=== PATIENT | male | born 1985 | race Caucasian/White ===

== ENCOUNTER 2019-01-15 16:51 | Inpatient (IN) | payer BC, OTHER ==
[2019-01-15] MEDS ORDERED: Lorazepam 2 MG/ML VIAL ONE ×6 (17:41→23:49)
[2019-01-15 17:57] LABS: #Lymphocytes 0.3 thou/uL (1.20-3.40); #Monocytes 0.1 thou/uL (0.11-0.59); %Eosinophils 0.4 % (0.0-10.0); %Lymphocytes 11.5 % (21.0-51.0); %Monocytes 3.9 % (0.0-10.0); %Neutrophils 84.2 % (42.0-75.0); Hemoglobin 11.8 g/dL (14.0-18.0); Mean Corpuscular HGB CONC 34.9 g/dL (32.0-36.0); Mean Corpuscular Hemoglobin 36.1 pg (27.0-31.0); Mean Platelet Volume 9.2 fL (7.4-10.4); Platelet Count 40 thou/uL (130-400); RBC Distribution Width 11.7 % (11.5-14.5); Red Blood Cell (RBC) Count 3.27 mill/uL (4.70-6.10); White Blood Cell (WBC) Count 2.4 thou/uL (4.8-10.8)
[2019-01-15 18:10] LABS: MDiff Complete? YES; Macrocytosis SLIGHT = 6-15 cells (100X) (0-5/hpf); Platelet Morphology Comment Appears Decreased; Polychromasia SLIGHT = 2-3 cells (100X) (0-2/hpf)
[2019-01-15] MEDS ORDERED: Multivitamins, Adult 10 ML, Thiamine HCl 100 MG, Folic Acid 1 MG in Dextrose 5 %-0.45 %... IV SCH (18:15)
[2019-01-15 18:16] LABS: ALT (SGPT) 185 U/L (8-55); AST (SGOT) 446 U/L (5-34); Albumin 4.6 g/dL (3.5-5.0); Alkaline Phosphatase 80 U/L (40-150); Anion Gap 21 mmol/L (10-20); BUN (Urea Nitrogen) 11 mg/dL (8.9-20.6); Calc. Creatinine Clearance 121 mL/min (70-130); Calcium 9.9 mg/dL (7.8-10.44); Carbon Dioxide 23 mmol/L (22-29); Chloride 94 mmol/L (98-107); Estimated GFR-MDRD Greater than 90; Globulin 3.1 g/dL (2.4-3.5); Glucose 152 mg/dL (70-105); Potassium 3.5 mmol/L (3.5-5.1); Protein, Total 7.7 g/dL (6.0-8.3); Sodium 134 mmol/L (136-145)
[2019-01-15 18:44] LABS: Bilirubin Negative (Negative); Blood, Urine 2+ (Negative); Clarity Clear (Clear); Glucose, Urine (Dipstick) Normal (Negative); Leukocyte Negative Leu/uL (Negative); Mucous/LPF 2+ LPF (<2+); Nitrite Negative (Negative); Protein, Urine (Dipstick) Greater than 600 mg/dL (Neg-Trace); Squamous Epithelial 0-3 HPF (0-3); Urobilinogen 3 mg/dL (Less than 2); WBC/HPF 0-3 HPF (0-3)
[2019-01-15 18:51] LABS: Bacteria/HPF None Seen HPF (None Seen); RBC/HPF 0-3 HPF (0-3)
[2019-01-15] MEDS ORDERED: Lorazepam 100 ML IVPB SCH ×2 (21:30→21:45)
[2019-01-15] MEDS ORDERED: Lorazepam 2 MG/ML VIAL SLOW IVP PRN ×2 (21:32→21:33)
[2019-01-15] MEDS ORDERED: Ondansetron PF 4 MG/2 ML Vial IVP PRN (21:35)
[2019-01-15] MEDS ORDERED: Acetaminophen 325 MG TAB PO PRN (21:35)
[2019-01-15] MEDS ORDERED: Acetaminophen 650 MG Suppository PR PRN (21:35)
[2019-01-15] MEDS ORDERED: Ondansetron ODT 4 MG TAB PO PRN (21:35)
[2019-01-15 23:04] LABS: INR-International Normal Ratio 1.1; Prothrombin Time 13.7 SEC (12.0-14.7)
--- NOTE | 2019-01-15 23:19 | HP ---
PRIMARY CARE DOCTOR: The patient has no PCP. CODE STATUS: Full code. TIME OF EVALUATION: 09:30 p.m. CHIEF COMPLAINT: Confusion. HISTORY OF PRESENT ILLNESS: This is a 33-year-old male patient, past medical history of alcohol abuse. The patient was coming from [facility], escorted. The patient was sitting in the day room and started jerking, likely triggered by alcohol withdrawal. Reportedly, the patient had an episode of seizure and has history of seizures in the past that have been always related to alcohol withdrawal. The patient has been getting Ativan. The patient is in full-blown DTs. We will continue to give Ativan p.r.n. IV. We will place him in ICU. The patient continued to deteriorate, might need intubation and sedation. Hopefully, we do not have to get that far. REVIEW OF SYSTEMS: Unable to obtain, patient is confused. PAST MEDICAL HISTORY: Seizures related to alcohol withdrawal. PAST SURGICAL HISTORY: No surgical history. PSYCHIATRIC HISTORY: No previous psych history. FAMILY HISTORY:Reviewed and non contributory for current presentation SOCIAL HISTORY: The patient is a heavy drinker on a daily basis. No drug use. No smoking history. KNOWN ALLERGIES: No known drug allergies. REPORTED MEDICATIONS: Clonidine and Librium. PHYSICAL EXAMINATION: VITAL SIGNS: On presentation, blood pressure 168/108 with heart rate 117, respiratory rate was 20. Pain was 0/10. Oxygen saturation was 95% on room air. GENERAL APPEARANCE: The patient is confused, hallucinating. HEENT: Eyes, normal conjunctiva. Moist oral mucosa. Anicteric. No JVD. RESPIRATORY: Bilateral air entry. No rales. No wheezing. Bilateral symmetric expansion. CARDIOVASCULAR: The patient is tachycardic, mildly hypertensive likely associated with agitation from DTs. When quiet, heart rate comes down to the 100s and the 90s. ABDOMEN: Soft. Normal bowel sounds. MUSCULOSKELETAL: Baseline range of motion and strength. SKIN: Warm and intact. No pallor. No rash. No redness. Capillary refill seems to intact. NEUROLOGIC: No evidence of any new focal weakness. Cranial nerves seem to be intact. PSYCHIATRIC: The patient is confused, unable to fully explore. LABORATORY DATA: Reviewed. Patient has white count 2.4, hemoglobin 11.8, MCV 104, platelet count 40. Chemistry; sodium 134, potassium 3.5, chloride 94, carbon dioxide 23, anion gap 21, BUN 11, creatinine 0.81, GFR greater than 90, glucose 152, calcium 9.9, magnesium 1.3, total bilirubin 2.0, AST 446, ALT 185. ASSESSMENT AND PLAN: The patient will be placed in the hospital with following medical problems; 1. Delirium tremens. The patient's last drink was probably 24 to 48 hours ago since he has been in [facility] for 24 hours. The patient is receiving Ativan. We will keep IV for now. We will monitor in ICU. The patient continue to deteriorate, might need sedation and intubation. We will monitor closely. 2. Chronic alcohol abuse. We will replace electrolytes as needed. Start ASE protocol with multivitamin replacement. Will need to be advised to stop drinking. The patient is alert and oriented. 3. Hypomagnesemia, magnesium 1.3, magnesium being replaced. 4. Possible alcoholic hepatitis given high bilirubin, higher AST compared to ALT. This could be also be due to cirrhosis. We will treat the underlying condition. 5. Pancytopenia, unclear etiology, could be due to chronic liver disease. We will monitor levels. There is no bleeding. We will check coagulation. 6. Deep venous thrombosis prophylaxis. 7. Hyponatremia, sodium 134, this is mild, no need for any acute intervention. We will monitor and treat accordingly. TIME SPENT: Critical care time more than 35 minutes spent in patient stabilization, review of records with bedside assessment and plan, discussion with ER physician. Job ID: [id number] MTDD
[2019-01-16] MEDS: Magnesium 2 GM/50 ML 2 GM in Premix Bag 1 BAG IVPB SCH ×2 (00:50→02:03)
[2019-01-16] MEDS: Sodium Chloride 0.9% 1,000 ML IV SCH ×3 (00:50→19:30)
[2019-01-16] MEDS: Lorazepam 2 MG/ML VIAL SLOW IVP SCH ×6 (00:50→20:58)
[2019-01-16 05:50] LABS: #Lymphocytes 0.9 thou/uL (1.20-3.40); #Monocytes 0.2 thou/uL (0.11-0.59); #Neutrophils 1.8 thou/uL (1.40-6.50); %Basophils 0.2 % (0.0-1.0); %Eosinophils 0.4 % (0.0-10.0); %Lymphocytes 31.1 % (21.0-51.0); %Monocytes 5.7 % (0.0-10.0); %Neutrophils 62.6 % (42.0-75.0); Hemoglobin 12.2 g/dL (14.0-18.0); Mean Corpuscular HGB CONC 34.8 g/dL (32.0-36.0); Mean Corpuscular Hemoglobin 36.5 pg (27.0-31.0); Mean Platelet Volume 10.2 fL (7.4-10.4); Platelet Count 40 thou/uL (130-400); RBC Distribution Width 11.6 % (11.5-14.5); Red Blood Cell (RBC) Count 3.34 mill/uL (4.70-6.10); White Blood Cell (WBC) Count 2.8 thou/uL (4.8-10.8)
[2019-01-16 06:13] LABS: Anion Gap 16 mmol/L (10-20); BUN (Urea Nitrogen) 6 mg/dL (8.9-20.6); Calc. Creatinine Clearance 144 mL/min (70-130); Calcium 9.3 mg/dL (7.8-10.44); Carbon Dioxide 24 mmol/L (22-29); Chloride 97 mmol/L (98-107); Estimated GFR-MDRD Greater than 90; Glucose 71 mg/dL (70-105); Potassium 3.3 mmol/L (3.5-5.1); Sodium 134 mmol/L (136-145)
[2019-01-16] MEDS: Enoxaparin Sodium 40 MG/0.4 ML SYRINGE SC SCH (08:26)
[2019-01-16] MEDS ORDERED: CCU Electrolyte Replacement 1 EACH FS ONE (10:13)
[2019-01-16] MEDS ORDERED: Magnesium Oxide 400 MG TAB PO PRN (10:17)
[2019-01-16] MEDS ORDERED: Potassium Chloride 40 MEQ in Premix Bag 1 BAG IVPB PRN (10:17)
[2019-01-16] MEDS ORDERED: PHOS-NAK 1 PKT PACK PO PRN ×2 (10:17)
[2019-01-16] MEDS ORDERED: Potassium Chloride 40 MEQ in Sodium Chloride 0.9% 250 ML 250 ML IVPB PRN (10:17)
[2019-01-16] MEDS ORDERED: Magnesium 2 GM/50 ML 2 GM in Premix Bag 1 BAG IVPB PRN (10:17)
[2019-01-16] MEDS ORDERED: Potassium Phosphate 15 MMOL in Sodium Chloride 0.9% 250 ML 250 ML IV PRN (10:17)
[2019-01-16] MEDS ORDERED: Potassium Phosphate 12 MMOL in Sodium Chloride 0.9% 250 ML 250 ML IV PRN (10:17)
[2019-01-16] MEDS ORDERED: Potassium Phosphate 9 MMOL in Sodium Chloride 0.9% 100 ML IVPB PRN (10:17)
[2019-01-16] MEDS ORDERED: CCU ELECTROLYTE REPLACEMENT PROTOCOL FS PRN (10:17)
--- NOTE | 2019-01-16 10:34 | PDOC.HOSPP ---
- Subjective Encounter Date: 01/16/19 Encounter Time: 10:33 Subjective: Mr. Aguero was seen today in follow-up of Alcohol withdrawal. He is agitated and squirming around in bed. He knows where he is, what year and month however. - Objective Vital Signs & Weight: Vital Signs (12 hours) Temp BP Pulse Ox 01/16/19 07:18 141/94 H 01/16/19 07:00 99.5 F 01/16/19 04:00 98.6 F 165/112 H 01/16/19 01:00 98 01/16/19 00:25 98.0 F 156/99 H Weight Weight 145 lb 1.027 oz Most Recent Monitor Data Heart Rate from ECG 93 NIBP 168/97 NIBP BP-Mean 120 Respiration from ECG 12 SpO2 100 I&O: 01/15/19 01/16/19 01/17/19 06:59 06:59 06:59 Intake Total 570 0 Output Total 1000 500 Balance -430 -500 Result Diagrams: 01/16/19 05:24 01/16/19 05:24 Hospitalist ROS - Medication Medications: Active Medications Generic Name Dose Route Start Last Admin Trade Name Sumitq PRN Reason Stop Dose Admin Enoxaparin Sodium 40 mg 01/16/19 09:00 01/16/19 08:26 Lovenox SC 40 mg 0900 KIANNA Administration Sodium Chloride 1,000 mls @ 125 mls/hr 01/15/19 22:15 01/16/19 00:50 Normal Saline 0.9% IV 1,000 mls .Q8H KIANNA Administration Lorazepam 2 mg 01/16/19 01:00 01/16/19 08:26 Ativan SLOW IVP 2 mg Q4HR KIANNA Administration Sodium Chloride 10 ml 01/16/19 09:00 01/16/19 09:05 Flush - Normal Saline IVF Not Given Q12HR KIANNA - Exam Eye: PERRL, anicteric sclera Heart: RRR (rate is regular but tachycardic), no murmur, no gallops, no rubs, normal peripheral pulses Respiratory: CTAB, no wheezes, no rales, rhonchi (+ occasional rhonchi) Gastrointestinal: soft, non-tender, non-distended, normal bowel sounds, no palpable masses, no hepatomegaly, no splenomegaly Extremities: no cyanosis, no clubbing, no edema Neurological: CN's grossly intact, no weakness Psychiatric: A&O x 3 Hosp A/P (1) Alcohol withdrawal delirium, acute, hyperactive Code(s): F10.231 - ALCOHOL DEPENDENCE WITH WITHDRAWAL DELIRIUM Status: Acute (2) Alcohol abuse Code(s): F10.10 - ALCOHOL ABUSE, UNCOMPLICATED Status: Acute (3) Alcohol withdrawal seizure Code(s): F10.239 - ALCOHOL DEPENDENCE WITH WITHDRAWAL, UNSPECIFIED; R56.9 - UNSPECIFIED CONVULSIONS Status: Acute - Plan * Alcohol Withdrawal with delerium tremens, and withdrawal seizure- continue ASE protocol, and he has been started on a Precedex drip * Will continue Thiamine and folic acid supplementation * Ativan as needed * Continue DVT and GI Prophylaxis
[2019-01-16] MEDS: Potassium Chloride 20 MEQ TAB PO PRN (11:43)
--- NOTE | 2019-01-16 13:01 | CON ---
DATE OF CONSULTATION: 01/16/2019 REASON FOR CONSULTATION: Alcohol withdrawal. HISTORY OF PRESENT ILLNESS: The patient is a 33-year-old male, who was brought in from the care home after having a seizure. He is in alcohol withdrawal. Apparently drinks a large amount of vodka daily. According to the oyster sorter, he was just admitted to the care home. PAST MEDICAL HISTORY: 1. Seizures. 2. Alcohol abuse. PAST SURGICAL HISTORY: None. PSYCHIATRIC HISTORY: None. SOCIAL HISTORY: Heavy drinker. Does not smoke. Does not use illicit drugs. ALLERGIES: NONE. MEDICATIONS: Prior to admission, 1. Clonidine. 2. Librium. REVIEW OF SYSTEMS: He is having hallucinations, confusion. PHYSICAL EXAMINATION: VITAL SIGNS: Temperature 99.5, pulse 93, blood pressure 168/97, and O2 saturation 100%. GENERAL: He is confused. He is in 4-point restraints. He is flailing to the bed. HEENT: Pupils are reactive. Sclerae are icteric. Oropharynx is clear. NECK: No adenopathy or JVD. LUNGS: Clear anteriorly. CARDIAC: S1 and S2. Tachycardic. ABDOMEN: Soft, nontender. EXTREMITIES: No clubbing, cyanosis, or edema. NEUROLOGIC: Moves all 4 extremities. LABORATORY DATA: Sodium 134, potassium 3.3, chloride 97, CO2 of 24, BUN 6, creatinine 0.6, glucose 71, AST 446, ALT 185, prolactin 17.1. INR 1.1. White blood cell count 2.8, hematocrit 35.1, and platelet count 40. ASSESSMENT: 1. Alcohol withdrawal/delirium tremens. 2. Thrombocytopenia, likely secondary to alcohol use. 3. Hyponatremia, which is likely secondary to alcohol use. 4. Leukopenia also likely secondary to alcohol use. PLAN: The patient will be kept in the ICU on DT precautions. We will give benzodiazepines as needed. Additionally, I will add a Precedex drip to help control symptoms. We will monitor his electrolytes closely. I have written for some IV thiamine. He is on enoxaparin for DVT prophylaxis and will be placed on Pepcid for GI prophylaxis. Job ID: [id number]
[2019-01-16 15:38] LABS: Potassium 3.6 mmol/L (3.5-5.1)
[2019-01-16] MEDS: Famotidine/PF 20 mg/2ml Vial SLOW IVP SCH (20:58)
[2019-01-17] MEDS: Lorazepam 2 MG/ML VIAL SLOW IVP SCH ×6 (01:11→20:59)
[2019-01-17] MEDS: Sodium Chloride 0.9% 1,000 ML IV SCH ×3 (02:42→20:59)
[2019-01-17 07:07] LABS: Anion Gap 17 mmol/L (10-20); BUN (Urea Nitrogen) 5 mg/dL (8.9-20.6); Calc. Creatinine Clearance 130 mL/min (70-130); Calcium 8.3 mg/dL (7.8-10.44); Carbon Dioxide 17 mmol/L (22-29); Chloride 107 mmol/L (98-107); Estimated GFR-MDRD Greater than 90; Glucose 73 mg/dL (70-105); Magnesium 1.8 mg/dL (1.6-2.6); Phosphorus 2.8 mg/dL (2.3-4.7); Potassium 3.9 mmol/L (3.5-5.1); Sodium 137 mmol/L (136-145)
[2019-01-17] MEDS: Enoxaparin Sodium 40 MG/0.4 ML SYRINGE SC SCH (08:00)
[2019-01-17] MEDS: Famotidine/PF 20 mg/2ml Vial SLOW IVP SCH (08:00)
--- NOTE | 2019-01-17 08:45 | PRG ---
DATE OF SERVICE: 01/17/2019 SUBJECTIVE: His alcohol withdrawal symptoms are much better today. He is off the Precedex. OBJECTIVE: VITAL SIGNS: Temperature 98, pulse 92, blood pressure 160/90, O2 saturation 99%. HEENT: Unremarkable. NECK: No adenopathy or JVD. CHEST: Clear. CARDIAC: S1 and S2. Regular. ABDOMEN: Soft. EXTREMITIES: No tremor. LABORATORY DATA: Sodium 137, potassium 3.9, magnesium 1.8. ASSESSMENT: Alcohol withdrawal. PLAN: He can be transferred from the ICU to the floor. Hopefully, he can go back to the shelter by tomorrow. No further Pulmonary recommendations at this time. Job ID: [id number]
--- NOTE | 2019-01-17 10:30 | PDOC.HOSPP ---
- Subjective Encounter Date: 01/17/19 Encounter Time: 10:28 Subjective: Mr. Aguero was seen today in follow-up of alcohol withdrawal. He does not have any complaints this morning other than his feet are sore. - Objective Vital Signs & Weight: Vital Signs (12 hours) Temp BP Pulse Ox 01/17/19 07:20 99 01/17/19 07:00 98 F 01/17/19 00:00 98.5 F 111/79 Weight Weight 145 lb 1.027 oz Most Recent Monitor Data Heart Rate from ECG 74 NIBP 127/90 NIBP BP-Mean 102 Respiration from ECG 18 SpO2 99 I&O: 01/16/19 01/17/19 01/18/19 06:59 06:59 06:59 Intake Total 570 3866.1 480 Output Total 1000 2700 350 Balance -430 1166.1 130 Result Diagrams: 01/16/19 05:24 01/17/19 06:26 Hospitalist ROS - Medication Medications: Active Medications Generic Name Dose Route Start Last Admin Trade Name Freq PRN Reason Stop Dose Admin Enoxaparin Sodium 40 mg 01/16/19 09:00 01/17/19 08:00 Lovenox SC 40 mg 0900 KIANNA Administration Famotidine 20 mg 01/16/19 21:00 01/17/19 08:00 Pepcid SLOW IVP 20 mg BID KIANNA Administration Sodium Chloride 1,000 mls @ 125 mls/hr 01/15/19 22:15 01/17/19 09:29 Normal Saline 0.9% IV 1,000 mls .Q8H KIANNA Administration Thiamine HCl 100 mg/ Sodium 51 mls @ 100 mls/hr 01/16/19 21:00 01/17/19 08:01 Chloride IVPB 01/20/19 09:31 51 mls Q12HR KIANNA Administration Lorazepam 2 mg 01/16/19 01:00 01/17/19 09:26 Ativan SLOW IVP 2 mg Q4HR KIANNA Administration Magnesium Oxide 800 mg 01/16/19 10:17 01/16/19 11:46 Magnesium Oxide PO 800 mg PRN PRN Administration FOR SERUM MAG < 1.4 Potassium Chloride 40 meq 01/16/19 10:17 01/16/19 11:43 K-Dur PO 40 meq ASDIR PRN Administration FOR SERUM K+ 2.5 - 3.5 Sodium Chloride 10 ml 01/16/19 09:00 01/17/19 08:01 Flush - Normal Saline IVF 10 ml Q12HR KIANNA Administration - Exam Eye: PERRL, anicteric sclera Heart: RRR, no murmur, no gallops, no rubs, normal peripheral pulses Respiratory: CTAB, no wheezes, no rales, no ronchi, normal chest expansion, no tachypnea, normal percussion Gastrointestinal: soft, non-tender, non-distended, normal bowel sounds, no palpable masses, no hepatomegaly, no splenomegaly Extremities: no cyanosis, no clubbing, no edema Skin: normal turgor, no rashes Neurological: CN's grossly intact, normal sensation to touch, no weakness, no focal deficits, no new deficit Psychiatric: A&O x 3 Hosp A/P (1) Alcohol withdrawal delirium, acute, hyperactive Code(s): F10.231 - ALCOHOL DEPENDENCE WITH WITHDRAWAL DELIRIUM Status: Acute (2) Alcohol abuse Code(s): F10.10 - ALCOHOL ABUSE, UNCOMPLICATED Status: Acute (3) Alcohol withdrawal seizure Code(s): F10.239 - ALCOHOL DEPENDENCE WITH WITHDRAWAL, UNSPECIFIED; R56.9 - UNSPECIFIED CONVULSIONS Status: Acute - Plan * Alcohol Withdrawal - improving. He is much more calm today, and his vital signs are stable. Precedex drip has been discontinued * Will continue to monitor in the hospital, and continue ASE protocol, and Ativan as needed * Will continue Thiamine and folic acid supplementation * Hypokalemia and Hypomagnesemia- improved * He can be moved out of the ICU * Continue DVT and GI Prophylaxis
[2019-01-17] MEDS: Diazepam 5 MG TAB PO PRN (23:15)
[2019-01-18] MEDS: Lorazepam 2 MG/ML VIAL SLOW IVP SCH ×6 (00:23→20:00)
[2019-01-18] MEDS ORDERED: Lorazepam 2 MG/ML VIAL SLOW IVP SCH (01:30)
[2019-01-18] MEDS: Lorazepam 2 MG/ML VIAL SLOW IVP PRN ×4 (01:53→15:53)
[2019-01-18] MEDS: Sodium Chloride 0.9% 1,000 ML IV SCH (03:27)
[2019-01-18] MEDS: Dextrose 5 % And 0.9 % NaCl 1,000 ML IV SCH ×2 (05:54→19:12)
[2019-01-18 06:53] LABS: Anion Gap 16 mmol/L (10-20); BUN (Urea Nitrogen) Less than 4 mg/dL (8.9-20.6); Calc. Creatinine Clearance 151 mL/min (70-130); Calcium 9.1 mg/dL (7.8-10.44); Carbon Dioxide 21 mmol/L (22-29); Chloride 103 mmol/L (98-107); Estimated GFR-MDRD Greater than 90; Glucose 93 mg/dL (70-105); Magnesium 1.3 mg/dL (1.6-2.6); Potassium 3.1 mmol/L (3.5-5.1); Sodium 137 mmol/L (136-145)
[2019-01-18 06:54] LABS: Phosphorus 1.7 mg/dL (2.3-4.7)
[2019-01-18] MEDS: Enoxaparin Sodium 40 MG/0.4 ML SYRINGE SC SCH (08:58)
[2019-01-18] MEDS: Nicotine 21 MG PATCH TD SCH (08:59)
--- NOTE | 2019-01-18 09:20 | PRG ---
DATE OF SERVICE: 01/18/2019 SUBJECTIVE: It looks like he is back in [place]id withdrawal. He is now in the IM. OBJECTIVE: VITAL SIGNS: His temperature is 97.0, pulse 85, blood pressure 163/104. GENERAL: He is tremulous. HEENT: No JVD. CHEST: Clear. CARDIAC: S1 and S2. Regular. ABDOMEN: Soft. EXTREMITIES: No edema. LABORATORY DATA: Sodium 137, potassium 3.1, phosphorus 1.7, magnesium 1.3, BUN 4, creatinine 0.6, CPK 1629. ASSESSMENT: 1. Alcohol withdrawal. 2. Rhabdomyolysis. PLAN: It looks like he may need more aggressive benzodiazepine dosing. I guess it is not out of the realm of possibility that he could also be addicted to other substances. We will replace his electrolytes. Job ID: [id number]
[2019-01-18] MEDS: Diazepam 5 MG TAB PO PRN ×2 (10:12→14:41)
--- NOTE | 2019-01-18 15:52 | PDOC.HOSPP ---
- Subjective Encounter Date: 01/18/19 Encounter Time: 13:00 Subjective: Mr. Aguero was seen today in follow-up of alcohol withdrawal. He is much more confused today. He is squirming in bed, and diaphoretic. - Objective Vital Signs & Weight: Vital Signs (12 hours) Temp Pulse Resp BP BP Pulse Ox 01/18/19 15:12 98.1 F 01/18/19 11:10 97.4 F L 01/18/19 08:00 163/104 H 100 01/18/19 07:32 97.0 F L 01/18/19 06:49 97.8 F 01/18/19 06:00 98.6 F 116 H 20 141/95 H 98 01/18/19 05:05 98.2 F 140 H 20 158/100 H 98 01/18/19 04:00 98.5 F 113 H 22 H 174/107 H 99 Weight Weight 149 lb 12.8 oz Most Recent Monitor Data Heart Rate from ECG 168 NIBP 171/120 NIBP BP-Mean 137 Respiration from ECG 14 SpO2 100 I&O: 01/17/19 01/18/19 01/19/19 06:59 06:59 06:59 Intake Total 3866.1 480 Output Total 2700 650 Balance 1166.1 -170 Result Diagrams: 01/16/19 05:24 01/18/19 06:14 Hospitalist ROS - Medication Medications: Active Medications Generic Name Dose Route Start Last Admin Trade Name Freq PRN Reason Stop Dose Admin Diazepam 5 mg 01/17/19 23:00 01/18/19 14:41 Valium PO 5 mg Q4H PRN Administration ASE Score of 10 or greater Enoxaparin Sodium 40 mg 01/16/19 09:00 01/18/19 08:58 Lovenox SC 40 mg 0900 KIANNA Administration Potassium Phosphate 9 mmol/ 103 mls @ 25.75 mls/hr 01/16/19 10:17 01/18/19 08 :17 Sodium Chloride IVPB 103 mls ASDIR PRN Administration Phosphate 1.0-1.8 Dextrose/Sodium Chloride 1,000 mls @ 125 mls/hr 01/18/19 06:00 01/18/19 05:54 D5 0.9% Ns IV 1,000 mls .Q8H KIANNA Administration Lorazepam 2 mg 01/16/19 01:00 01/18/19 13:38 Ativan SLOW IVP 2 mg Q4HR KIANNA Administration Lorazepam 2 mg 01/15/19 21:34 01/18/19 11:06 Ativan SLOW IVP 2 mg Q4H PRN Administration Anxiety/Agitation Magnesium Oxide 800 mg 01/16/19 10:17 01/16/19 11:46 Magnesium Oxide PO 800 mg PRN PRN Administration FOR SERUM MAG < 1.4 Nicotine 21 mg 01/18/19 09:00 01/18/19 08:59 Nicoderm Patch TD 21 mg DAILY KIANNA Administration Ondansetron HCl 4 mg 01/15/19 21:35 01/17/19 15:13 Zofran Odt PO 4 mg Q6H PRN Administration Nausea/Vomiting Potassium Chloride 40 meq 01/16/19 10:17 01/16/19 11:43 K-Dur PO 40 meq ASDIR PRN Administration FOR SERUM K+ 2.5 - 3.5 Sodium Chloride 10 ml 01/16/19 09:00 01/18/19 08:59 Flush - Normal Saline IVF 10 ml Q12HR KIANNA Administration - Exam Eye: PERRL, anicteric sclera Heart: RRR (tachycardic), no murmur, no gallops, no rubs, normal peripheral pulses Respiratory: CTAB, no wheezes, no rales, no ronchi, normal chest expansion Gastrointestinal: soft, non-tender Extremities: no cyanosis, no clubbing, no edema Hosp A/P (1) Alcohol withdrawal delirium, acute, hyperactive Code(s): F10.231 - ALCOHOL DEPENDENCE WITH WITHDRAWAL DELIRIUM Status: Acute (2) Alcohol abuse Code(s): F10.10 - ALCOHOL ABUSE, UNCOMPLICATED Status: Acute (3) Alcohol withdrawal seizure Code(s): F10.239 - ALCOHOL DEPENDENCE WITH WITHDRAWAL, UNSPECIFIED; R56.9 - UNSPECIFIED CONVULSIONS Status: Acute - Plan * Alcohol Withdrawal - he made a turn for the worse today. He is now in restraints beyound the one's from the [facility]. Will continue Ativan scheduled * Will continue Thiamine andFolic Acid supplementation * Hypokalemia and Hypomagnesemia- these are low again- continue to replace * Keep in the IMCU * Continue DVT and GI Prophylaxis
[2019-01-18] MEDS ORDERED: chlordiazePOXIDE HCl 25 MG CAP PO SCH (16:00)
[2019-01-18] MEDS: chlordiazePOXIDE HCl 25 MG CAP PO SCH (20:03)
[2019-01-19] MEDS: Dextrose 5 % And 0.9 % NaCl 1,000 ML IV SCH ×4 (00:13→22:24)
[2019-01-19] MEDS: Lorazepam 2 MG/ML VIAL SLOW IVP SCH ×7 (01:28→21:14)
[2019-01-19 06:52] LABS: Anion Gap 17 mmol/L (10-20); BUN (Urea Nitrogen) 7 mg/dL (8.9-20.6); Calc. Creatinine Clearance 148 mL/min (70-130); Calcium 8.6 mg/dL (7.8-10.44); Carbon Dioxide 18 mmol/L (22-29); Chloride 109 mmol/L (98-107); Estimated GFR-MDRD Greater than 90; Glucose 80 mg/dL (70-105); Magnesium 1.5 mg/dL (1.6-2.6); Sodium 141 mmol/L (136-145)
[2019-01-19 07:04] LABS: Potassium 2.8 mmol/L (3.5-5.1)
[2019-01-19] MEDS ORDERED: Magnesium 2 GM/50 ML 2 GM in Premix Bag 1 BAG IVPB SCH (07:30)
--- NOTE | 2019-01-19 08:17 | PRG ---
DATE OF SERVICE: 01/19/2019 SUBJECTIVE: He was transferred to the ICU yesterday afternoon for continued major alcohol withdrawal symptoms. He is now on Precedex. He is very somnolent. OBJECTIVE: VITAL SIGNS: Temperature is 98.0, pulse 67, blood pressure 134/77, and O2 saturation 100%. HEENT: Unremarkable. NECK: No JVD. CHEST: Clear. CARDIAC: S1 and S2. Regular. ABDOMEN: Soft. EXTREMITIES: No edema. LABORATORY DATA: Sodium 140, potassium 2.8, chloride 109, CO2 of 18, BUN 7, creatinine 0.6, glucose 80, and magnesium 1.5. ASSESSMENT: 1. Alcohol withdrawal. 2. Rhabdomyolysis. 3. Alcohol refeeding syndrome. PLAN: 1. Electrolytes will be replaced. 2. Ease up on benzodiazepines, if able to tolerate. 3. Continue Precedex as needed. 4. He is getting thiamine supplementation. Job ID: [id number]
[2019-01-19] MEDS: Enoxaparin Sodium 40 MG/0.4 ML SYRINGE SC SCH (08:58)
[2019-01-19] MEDS: chlordiazePOXIDE HCl 25 MG CAP PO SCH ×3 (09:00→21:14)
[2019-01-19] MEDS: Nicotine 21 MG PATCH TD SCH (11:11)
[2019-01-19] MEDS: Potassium Chloride 20 MEQ TAB PO PRN (15:52)
--- NOTE | 2019-01-19 16:38 | PDOC.HOSPP ---
- Subjective Encounter Date: 01/19/19 Encounter Time: 11:15 Subjective: Mr. Aguero was seen today in follow-up of alcohol withdrawal. He is currently well sedated, sleeping. - Objective Vital Signs & Weight: Vital Signs (12 hours) Temp BP Pulse Ox 01/19/19 16:00 146/90 H 01/19/19 15:00 98.5 F 01/19/19 12:00 98.7 F 128/85 01/19/19 11:00 98.7 F 01/19/19 08:00 92/55 L 01/19/19 07:54 100 01/19/19 07:00 98.6 F Weight Weight 149 lb 12.8 oz Most Recent Monitor Data Heart Rate from ECG 67 NIBP 146/90 NIBP BP-Mean 108 Respiration from ECG 19 SpO2 100 I&O: 01/18/19 01/19/19 01/20/19 06:59 06:59 06:59 Intake Total 480 2232.9 970 Output Total 650 250 Balance -170 1982.9 970 Result Diagrams: 01/16/19 05:24 01/19/19 14:00 Hospitalist ROS - Medication Medications: Active Medications Generic Name Dose Route Start Last Admin Trade Name Freq PRN Reason Stop Dose Admin Chlordiazepoxide HCl 25 mg 01/18/19 21:00 01/19/19 15:25 Librium PO 25 mg TID KIANNA Administration Diazepam 5 mg 01/17/19 23:00 01/18/19 14:41 Valium PO 5 mg Q4H PRN Administration ASE Score of 10 or greater Enoxaparin Sodium 40 mg 01/16/19 09:00 01/19/19 08:58 Lovenox SC 40 mg 09 KIANNA Administration Potassium Chloride 40 meq/ 270 mls @ 135 mls/hr 01/16/19 10:17 01/19/19 08:52 Sodium Chloride IVPB 270 mls ASDIR PRN Administration FOR SERUM K+ 2.5 - 3.5 Potassium Phosphate 9 mmol/ 103 mls @ 25.75 mls/hr 01/16/19 10:17 01/18/19 08 :17 Sodium Chloride IVPB 103 mls ASDIR PRN Administration Phosphate 1.0-1.8 Dextrose/Sodium Chloride 1,000 mls @ 125 mls/hr 01/18/19 06:00 01/19/19 13:43 D5 0.9% Ns IV 1,000 mls .Q8H KIANNA Administration Thiamine HCl 100 mg/ Sodium 51 mls @ 100 mls/hr 01/18/19 16:00 01/19/19 05:39 Chloride IVPB 01/20/19 16:31 51 mls 0400,1600 KIANNA Administration Dexmedetomidine HCl 200 mcg/ 50 mls @ 0 mls/hr 01/18/19 16:00 01/19/19 13:42 Sodium Chloride IVPB 50 mls INF KIANNA Administration Protocol Per Protocol Lorazepam 2 mg 01/16/19 01:00 01/19/19 13:15 Ativan SLOW IVP Not Given Q4HR KIANNA Lorazepam 2 mg 01/15/19 21:34 01/18/19 15:53 Ativan SLOW IVP 2 mg Q4H PRN Administration Anxiety/Agitation Magnesium Oxide 800 mg 01/16/19 10:17 01/16/19 11:46 Magnesium Oxide PO 800 mg PRN PRN Administration FOR SERUM MAG < 1.4 Nicotine 21 mg 01/18/19 09:00 01/19/19 11:11 Nicoderm Patch TD 21 mg DAILY KIANNA Administration Ondansetron HCl 4 mg 01/15/19 21:35 01/17/19 15:13 Zofran Odt PO 4 mg Q6H PRN Administration Nausea/Vomiting Potassium Chloride 40 meq 01/16/19 10:17 01/19/19 15:52 K-Dur PO 40 meq ASDIR PRN Administration FOR SERUM K+ 2.5 - 3.5 Sodium Chloride 10 ml 01/16/19 09:00 01/19/19 10:00 Flush - Normal Saline IVF 10 ml Q12HR KIANNA Administration - Exam Eye: PERRL, anicteric sclera Heart: RRR, no murmur, no gallops, no rubs, normal peripheral pulses Respiratory: CTAB, no wheezes, no rales, no ronchi, normal chest expansion Gastrointestinal: soft, non-tender, non-distended, normal bowel sounds, no palpable masses, no hepatomegaly, no splenomegaly Extremities: no cyanosis, no edema Hosp A/P (1) Alcohol withdrawal delirium, acute, hyperactive Code(s): F10.231 - ALCOHOL DEPENDENCE WITH WITHDRAWAL DELIRIUM Status: Acute (2) Alcohol abuse Code(s): F10.10 - ALCOHOL ABUSE, UNCOMPLICATED Status: Acute (3) Alcohol withdrawal seizure Code(s): F10.239 - ALCOHOL DEPENDENCE WITH WITHDRAWAL, UNSPECIFIED; R56.9 - UNSPECIFIED CONVULSIONS Status: Acute - Plan * Alcohol Withdrawal - continue Precedex, and Ativan as needed * Blood pressure and heart rate are stable * Will continue Thiamine and Folic Acid supplementation * Hypokalemia and Hypomagnesemia- these are low again- continue to replace * He was moved to the ICU last night * Continue DVT and GI Prophylaxis
[2019-01-19 20:34] LABS: Potassium 3.6 mmol/L (3.5-5.1)
[2019-01-20] MEDS: Lorazepam 2 MG/ML VIAL SLOW IVP SCH ×6 (01:23→21:06)
[2019-01-20 04:34] LABS: Anion Gap 8 mmol/L (10-20); BUN (Urea Nitrogen) Less than 4 mg/dL (8.9-20.6); Calc. Creatinine Clearance 148 mL/min (70-130); Calcium 8.2 mg/dL (7.8-10.44); Carbon Dioxide 23 mmol/L (22-29); Chloride 110 mmol/L (98-107); Estimated GFR-MDRD Greater than 90; Glucose 151 mg/dL (70-105); Magnesium 1.6 mg/dL (1.6-2.6); Potassium 3.1 mmol/L (3.5-5.1); Sodium 138 mmol/L (136-145)
[2019-01-20 04:35] LABS: Phosphorus 2.3 mg/dL (2.3-4.7)
[2019-01-20] MEDS: Potassium Chloride 20 MEQ TAB PO PRN (05:25)
[2019-01-20] MEDS: Dextrose 5 % And 0.9 % NaCl 1,000 ML IV SCH ×3 (05:30→21:06)
[2019-01-20] MEDS: Magnesium Oxide 400 MG TAB PO PRN ×2 (07:55→15:27)
[2019-01-20] MEDS: Enoxaparin Sodium 40 MG/0.4 ML SYRINGE SC SCH (08:46)
[2019-01-20] MEDS: chlordiazePOXIDE HCl 25 MG CAP PO SCH ×3 (08:46→21:06)
[2019-01-20] MEDS: Nicotine 21 MG PATCH TD SCH (08:47)
--- NOTE | 2019-01-20 09:59 | PRG ---
DATE OF SERVICE: 01/20/2019 SUBJECTIVE: He is awake, alert, better. Precedex has been off since about 6:00 a.m. this morning. OBJECTIVE: VITAL SIGNS: On exam, temperature is 99, pulse 77, blood pressure 170/116, and O2 saturation 100%. A 24-hour intake 4700, output 1600. HEENT: Unremarkable. NECK: No adenopathy or JVD. CHEST: Clear. CARDIAC: S1 and S2. Regular. ABDOMEN: Soft. EXTREMITIES: No edema. LABORATORY DATA: Potassium is 3.1, magnesium 1.6. ASSESSMENT: Alcohol withdrawal/delirium tremens. PLAN: We will see how he does off the Precedex. I would not be anxious to move him to the floor quite yet given the events of the other day. He is continuing thiamine, IV fluids, and electrolyte replacement. Job ID: [id number]
[2019-01-20] MEDS ORDERED: cloNIDine 0.1 MG TAB PO PRN (10:02)
[2019-01-20] MEDS ORDERED: cloNIDine 0.2 MG TAB PO PRN (12:53)
[2019-01-20] MEDS: cloNIDine 0.1 MG TAB PO PRN ×3 (13:28→22:40)
[2019-01-20 15:51] LABS: Potassium 3.7 mmol/L (3.5-5.1)
--- NOTE | 2019-01-20 16:47 | PDOC.HOSPP ---
- Subjective Encounter Date: 01/20/19 Encounter Time: 11:15 Subjective: Mr. Aguero was seen today in follow-up of alcohol withdrawal. He does not have any new complaints. He is much more alert, and calm. He is no longer confused. - Objective Vital Signs & Weight: Vital Signs (12 hours) Temp Pulse Ox 01/20/19 16:00 98.6 F 01/20/19 11:00 99.4 F 01/20/19 08:00 100 01/20/19 07:00 99.0 F Weight Weight 149 lb 12.8 oz Most Recent Monitor Data Heart Rate from ECG 84 NIBP 166/118 NIBP BP-Mean 134 Respiration from ECG 13 SpO2 100 I&O: 01/19/19 01/20/19 01/21/19 06:59 06:59 06:59 Intake Total 2232.9 4700.6 1120 Output Total 250 1600 2250 Balance 1982.9 3100.6 -1130 Result Diagrams: 01/16/19 05:24 01/20/19 15:23 Additional Labs: Accuchecks 01/18/19 05:35 POC Glucose 102 Hospitalist ROS - Medication Medications: Active Medications Generic Name Dose Route Start Last Admin Trade Name Freq PRN Reason Stop Dose Admin Chlordiazepoxide HCl 25 mg 01/18/19 21:00 01/20/19 14:47 Librium PO 25 mg TID KIANNA Administration Diazepam 5 mg 01/17/19 23:00 01/18/19 14:41 Valium PO 5 mg Q4H PRN Administration ASE Score of 10 or greater Enoxaparin Sodium 40 mg 01/16/19 09:00 01/20/19 08:46 Lovenox SC 40 mg 0900 KIANNA Administration Potassium Chloride 40 meq/ 270 mls @ 135 mls/hr 01/16/19 10:17 01/19/19 08:52 Sodium Chloride IVPB 270 mls ASDIR PRN Administration FOR SERUM K+ 2.5 - 3.5 Potassium Phosphate 9 mmol/ 103 mls @ 25.75 mls/hr 01/16/19 10:17 01/18/19 08 :17 Sodium Chloride IVPB 103 mls ASDIR PRN Administration Phosphate 1.0-1.8 Dextrose/Sodium Chloride 1,000 mls @ 125 mls/hr 01/18/19 06:00 01/20/19 16:41 D5 0.9% Ns IV 1,000 mls .Q8H KIANNA Administration Dexmedetomidine HCl 200 mcg/ 50 mls @ 0 mls/hr 01/18/19 16:00 01/19/19 13:42 Sodium Chloride IVPB 50 mls INF KIANNA Administration Protocol Per Protocol Lorazepam 2 mg 01/16/19 01:00 01/20/19 12:44 Ativan SLOW IVP 2 mg Q4HR KIANNA Administration Lorazepam 2 mg 01/15/19 21:34 01/18/19 15:53 Ativan SLOW IVP 2 mg Q4H PRN Administration Anxiety/Agitation Magnesium Oxide 400 mg 01/16/19 10:17 01/20/19 15:27 Magnesium Oxide PO 400 mg BIDPRN PRN Administration FOR SERUM MAG 1.4 - 2.0 Magnesium Oxide 800 mg 01/16/19 10:17 01/16/19 11:46 Magnesium Oxide PO 800 mg PRN PRN Administration FOR SERUM MAG < 1.4 Nicotine 21 mg 01/18/19 09:00 01/20/19 08:47 Nicoderm Patch TD 21 mg DAILY KIANNA Administration Ondansetron HCl 4 mg 01/15/19 21:35 01/17/19 15:13 Zofran Odt PO 4 mg Q6H PRN Administration Nausea/Vomiting Potassium Chloride 40 meq 01/16/19 10:17 01/20/19 05:25 K-Dur PO 40 meq ASDIR PRN Administration FOR SERUM K+ 2.5 - 3.5 Sodium Chloride 10 ml 01/16/19 09:00 01/20/19 08:47 Flush - Normal Saline IVF 10 ml Q12HR KIANNA Administration - Exam Eye: PERRL, anicteric sclera Heart: RRR, no murmur, no gallops, no rubs, normal peripheral pulses Respiratory: CTAB, no wheezes, no rales, no ronchi, normal chest expansion Gastrointestinal: soft, non-tender, non-distended, normal bowel sounds, no palpable masses, no hepatomegaly, no splenomegaly Extremities: no cyanosis, no clubbing, no edema Skin: normal turgor (+ light bruising on upper extremities and ankles) Hosp A/P (1) Alcohol withdrawal delirium, acute, hyperactive Code(s): F10.231 - ALCOHOL DEPENDENCE WITH WITHDRAWAL DELIRIUM Status: Acute (2) Alcohol abuse Code(s): F10.10 - ALCOHOL ABUSE, UNCOMPLICATED Status: Acute (3) Alcohol withdrawal seizure Code(s): F10.239 - ALCOHOL DEPENDENCE WITH WITHDRAWAL, UNSPECIFIED; R56.9 - UNSPECIFIED CONVULSIONS Status: Acute - Plan * Alcohol Withdrawal - he is again off Precedex- will continue PRN benzodiazepines * Blood pressure- has been elevated- will add Clonodine * Will continue Thiamine and Folic Acid supplementation * Hypokalemia and Hypomagnesemia- continue to replace * Continue DVT and GI Prophylaxis
[2019-01-21] MEDS: Lorazepam 2 MG/ML VIAL SLOW IVP SCH ×6 (01:06→20:59)
[2019-01-21 04:11] LABS: Anion Gap 12 mmol/L (10-20); BUN (Urea Nitrogen) Less than 4 mg/dL (8.9-20.6); Calc. Creatinine Clearance 146 mL/min (70-130); Calcium 9.2 mg/dL (7.8-10.44); Carbon Dioxide 25 mmol/L (22-29); Chloride 107 mmol/L (98-107); Estimated GFR-MDRD Greater than 90; Glucose 116 mg/dL (70-105); Magnesium 1.5 mg/dL (1.6-2.6); Potassium 3.5 mmol/L (3.5-5.1); Sodium 140 mmol/L (136-145)
[2019-01-21 04:13] LABS: Phosphorus 3.2 mg/dL (2.3-4.7)
[2019-01-21] MEDS: Dextrose 5 % And 0.9 % NaCl 1,000 ML IV SCH (05:40)
[2019-01-21 06:17] VITALS: BMI 22.4
--- NOTE | 2019-01-21 07:50 | PRG ---
DATE OF SERVICE: 01/21/2019 SUBJECTIVE: He is still requiring scheduled benzodiazepines. He is off the Precedex. Seems to be calm this morning. OBJECTIVE: VITAL SIGNS: On exam, temperature is 99.6, pulse 57, blood pressure 141/94, and O2 saturation 99%. He was over 3 L positive yesterday's for his intake. HEENT: Unremarkable. NECK: No JVD. CHEST: Clear. CARDIAC: S1 and S2, regular. ABDOMEN: Soft. EXTREMITIES: No edema. LABORATORY DATA: Sodium 140, potassium 3.5, and magnesium 1.5. ASSESSMENT: Alcohol withdrawal. PLAN: The patient can be moved to the [facility]. He still requires close monitoring given the events of the last week. His magnesium and potassium will be supplemented. His electrolytes will continue to be checked daily until he stabilizes. Job ID: [id number]
[2019-01-21] MEDS: Potassium Chloride 20 MEQ TAB PO PRN (08:04)
[2019-01-21] MEDS: cloNIDine 0.1 MG TAB PO PRN ×2 (08:04→14:12)
[2019-01-21] MEDS: chlordiazePOXIDE HCl 25 MG CAP PO SCH ×3 (08:04→20:59)
[2019-01-21] MEDS: Nicotine 21 MG PATCH TD SCH (08:44)
[2019-01-21] MEDS: Enoxaparin Sodium 40 MG/0.4 ML SYRINGE SC SCH (08:44)
[2019-01-21] MEDS: Magnesium Oxide 400 MG TAB PO PRN ×2 (09:12→13:21)
--- NOTE | 2019-01-21 18:08 | PDOC.HOSPP ---
- Subjective Encounter Date: 01/21/19 Encounter Time: 11:20 Subjective: Mr. Aguero was seen today in follow-up of alcohol withdrawal. He is much clearer today. He does not have any complaints. - Objective Vital Signs & Weight: Vital Signs (12 hours) Temp BP Pulse Ox 01/21/19 16:00 98.9 F 01/21/19 14:12 167/101 H 01/21/19 11:00 98.0 F 01/21/19 08:04 182/132 H 01/21/19 08:00 100 01/21/19 07:00 97.9 F Weight Weight 155 lb 13.869 oz Most Recent Monitor Data Heart Rate from ECG 80 NIBP 137/110 NIBP BP-Mean 119 Respiration from ECG 25 SpO2 99 I&O: 01/20/19 01/21/19 01/22/19 06:59 06:59 06:59 Intake Total 4700.6 5390 1609 Output Total 1600 4850 1250 Balance 3100.6 540 359 Result Diagrams: 01/16/19 05:24 01/21/19 03:30 Hospitalist ROS - Medication Medications: Active Medications Generic Name Dose Route Start Last Admin Trade Name Freq PRN Reason Stop Dose Admin Chlordiazepoxide HCl 25 mg 01/18/19 21:00 01/21/19 15:04 Librium PO 25 mg TID KIANNA Administration Clonidine 0.1 mg 01/20/19 13:23 01/21/19 14:12 Catapres PO 0.1 mg Q4H PRN Administration .SBP > 160 Diazepam 5 mg 01/17/19 23:00 01/18/19 14:41 Valium PO 5 mg Q4H PRN Administration ASE Score of 10 or greater Enoxaparin Sodium 40 mg 01/16/19 09:00 01/21/19 08:44 Lovenox SC 40 mg 0900 KIANNA Administration Potassium Chloride 40 meq/ 270 mls @ 135 mls/hr 01/16/19 10:17 01/19/19 08:52 Sodium Chloride IVPB 270 mls ASDIR PRN Administration FOR SERUM K+ 2.5 - 3.5 Potassium Phosphate 9 mmol/ 103 mls @ 25.75 mls/hr 01/16/19 10:17 01/18/19 08 :17 Sodium Chloride IVPB 103 mls ASDIR PRN Administration Phosphate 1.0-1.8 Lorazepam 2 mg 01/16/19 01:00 01/21/19 17:01 Ativan SLOW IVP 2 mg Q4HR KIANNA Administration Lorazepam 2 mg 01/15/19 21:34 01/18/19 15:53 Ativan SLOW IVP 2 mg Q4H PRN Administration Anxiety/Agitation Magnesium Oxide 400 mg 01/16/19 10:17 01/21/19 13:21 Magnesium Oxide PO 400 mg BIDPRN PRN Administration FOR SERUM MAG 1.4 - 2.0 Magnesium Oxide 800 mg 01/16/19 10:17 01/16/19 11:46 Magnesium Oxide PO 800 mg PRN PRN Administration FOR SERUM MAG < 1.4 Nicotine 21 mg 01/18/19 09:00 01/21/19 08:44 Nicoderm Patch TD 21 mg DAILY KIANNA Administration Ondansetron HCl 4 mg 01/15/19 21:35 01/17/19 15:13 Zofran Odt PO 4 mg Q6H PRN Administration Nausea/Vomiting Potassium Chloride 40 meq 01/16/19 10:17 01/21/19 08:04 K-Dur PO 40 meq ASDIR PRN Administration FOR SERUM K+ 2.5 - 3.5 Sodium Chloride 10 ml 01/16/19 09:00 01/21/19 08:10 Flush - Normal Saline IVF 10 ml Q12HR KIANNA Administration - Exam Eye: PERRL, anicteric sclera Heart: RRR, no murmur, no gallops, no rubs, normal peripheral pulses Respiratory: CTAB, no wheezes, no rales, no ronchi, normal chest expansion, no tachypnea, normal percussion Gastrointestinal: soft, non-tender, non-distended, normal bowel sounds, no palpable masses, no hepatomegaly, no splenomegaly Hosp A/P (1) Alcohol withdrawal delirium, acute, hyperactive Code(s): F10.231 - ALCOHOL DEPENDENCE WITH WITHDRAWAL DELIRIUM Status: Acute (2) Alcohol abuse Code(s): F10.10 - ALCOHOL ABUSE, UNCOMPLICATED Status: Acute (3) Alcohol withdrawal seizure Code(s): F10.239 - ALCOHOL DEPENDENCE WITH WITHDRAWAL, UNSPECIFIED; R56.9 - UNSPECIFIED CONVULSIONS Status: Acute - Plan * Alcohol Withdrawal - improving- he still requires Ativan IV occasionally * Blood pressure and heart rate have been trending down * Patient was counseled briefly on abstinence,and inquired on his plans to quit. He tells us he will be incarcerated for about 2 years and hopefully he will not have the desire to continue after that. He has been to a few program in the past, but they were unsuccessful. He feels he has heard the "lectures" and feels like they treat you like 3 year olds. - Hopefully they will have some type of program in the senior care. * Will continue Thiamine and Folic Acid supplementation * Hypokalemia and Hypomagnesemia- continue to replace * Continue DVT and GI Prophylaxis
[2019-01-22] MEDS: cloNIDine 0.1 MG TAB PO PRN (00:22)
[2019-01-22] MEDS: Lorazepam 2 MG/ML VIAL SLOW IVP SCH ×4 (01:03→17:16)
[2019-01-22 06:42] LABS: Anion Gap 12 mmol/L (10-20); BUN (Urea Nitrogen) 6 mg/dL (8.9-20.6); Calc. Creatinine Clearance 153 mL/min (70-130); Calcium 9.7 mg/dL (7.8-10.44); Carbon Dioxide 25 mmol/L (22-29); Chloride 106 mmol/L (98-107); Estimated GFR-MDRD Greater than 90; Glucose 117 mg/dL (70-105); Potassium 3.7 mmol/L (3.5-5.1); Sodium 139 mmol/L (136-145)
[2019-01-22 06:44] LABS: Phosphorus 3.9 mg/dL (2.3-4.7)
[2019-01-22 07:49] LABS: Magnesium 1.7 mg/dL (1.6-2.6)
[2019-01-22] MEDS: chlordiazePOXIDE HCl 25 MG CAP PO SCH ×3 (09:14→20:03)
[2019-01-22] MEDS: Enoxaparin Sodium 40 MG/0.4 ML SYRINGE SC SCH (09:14)
[2019-01-22] MEDS: Nicotine 21 MG PATCH TD SCH (09:14)
--- NOTE | 2019-01-22 14:10 | PDOC.HOSPP ---
- Subjective Encounter Date: 01/22/19 Encounter Time: 10:50 Subjective: awake, oriented well is conversing normally now - Objective Vital Signs & Weight: Vital Signs (12 hours) Temp Pulse Resp BP Pulse Ox 01/22/19 10:46 99.8 F H 01/22/19 07:07 99.2 F 01/22/19 05:00 98.2 F 62 18 118/78 99 Weight Weight 154 lb 12.8 oz Most Recent Monitor Data Heart Rate from ECG 78 NIBP 120/72 NIBP BP-Mean 88 Respiration from ECG 7 SpO2 98 I&O: 01/21/19 01/22/19 01/23/19 06:59 06:59 06:59 Intake Total 5390 2379 Output Total 4850 2070 200 Balance 540 309 -200 Result Diagrams: 01/16/19 05:24 01/22/19 05:58 Hospitalist ROS - Medication Medications: Active Medications Generic Name Dose Route Start Last Admin Trade Name Freq PRN Reason Stop Dose Admin Chlordiazepoxide HCl 25 mg 01/18/19 21:00 01/22/19 09:14 Librium PO 25 mg TID KIANNA Administration Clonidine 0.1 mg 01/20/19 13:23 01/22/19 00:22 Catapres PO 0.1 mg Q4H PRN Administration .SBP > 160 Diazepam 5 mg 01/17/19 23:00 01/18/19 14:41 Valium PO 5 mg Q4H PRN Administration ASE Score of 10 or greater Enoxaparin Sodium 40 mg 01/16/19 09:00 01/22/19 09:14 Lovenox SC 40 mg 0900 KIANNA Administration Potassium Chloride 40 meq/ 270 mls @ 135 mls/hr 01/16/19 10:17 01/19/19 08:52 Sodium Chloride IVPB 270 mls ASDIR PRN Administration FOR SERUM K+ 2.5 - 3.5 Potassium Phosphate 9 mmol/ 103 mls @ 25.75 mls/hr 01/16/19 10:17 01/18/19 08 :17 Sodium Chloride IVPB 103 mls ASDIR PRN Administration Phosphate 1.0-1.8 Lorazepam 2 mg 01/16/19 01:00 01/22/19 09:14 Ativan SLOW IVP 2 mg Q4HR KIANNA Administration Lorazepam 2 mg 01/15/19 21:34 01/18/19 15:53 Ativan SLOW IVP 2 mg Q4H PRN Administration Anxiety/Agitation Magnesium Oxide 400 mg 01/16/19 10:17 01/21/19 13:21 Magnesium Oxide PO 400 mg BIDPRN PRN Administration FOR SERUM MAG 1.4 - 2.0 Magnesium Oxide 800 mg 01/16/19 10:17 01/16/19 11:46 Magnesium Oxide PO 800 mg PRN PRN Administration FOR SERUM MAG < 1.4 Nicotine 21 mg 01/18/19 09:00 01/22/19 09:14 Nicoderm Patch TD 21 mg DAILY KIANNA Administration Ondansetron HCl 4 mg 01/15/19 21:35 01/17/19 15:13 Zofran Odt PO 4 mg Q6H PRN Administration Nausea/Vomiting Potassium Chloride 40 meq 01/16/19 10:17 01/21/19 08:04 K-Dur PO 40 meq ASDIR PRN Administration FOR SERUM K+ 2.5 - 3.5 Sodium Chloride 10 ml 01/16/19 09:00 01/22/19 09:15 Flush - Normal Saline IVF 10 ml Q12HR KIANNA Administration Sodium Chloride 10 ml 01/16/19 00:29 01/22/19 06:38 Flush - Normal Saline IVF 10 ml PRN PRN Administration Saline Flush - Exam General Appearance: NAD, awake alert Eye: PERRL, anicteric sclera ENT: no oropharyngeal lesions, moist mucosa Neck: supple, no JVD Heart: RRR, no murmur Respiratory: no wheezes, no rales Gastrointestinal: soft, non-tender, non-distended, normal bowel sounds Extremities: no edema Neurological: cranial nerve grossly intact, no focal deficits Psychiatric: normal affect, A&O x 3 Hosp A/P (1) Physical deconditioning Code(s): R53.81 - OTHER MALAISE Status: Acute (2) Alcohol abuse Code(s): F10.10 - ALCOHOL ABUSE, UNCOMPLICATED Status: Acute (3) Alcohol withdrawal delirium, acute, hyperactive Code(s): F10.231 - ALCOHOL DEPENDENCE WITH WITHDRAWAL DELIRIUM Status: Acute (4) Alcohol withdrawal seizure Code(s): F10.239 - ALCOHOL DEPENDENCE WITH WITHDRAWAL, UNSPECIFIED; R56.9 - UNSPECIFIED CONVULSIONS Status: Acute - Plan is hemostable electrolytes are stable may tx to med floor PT to ambulate as tolerated on librium tid, ASE protocol
[2019-01-22] MEDS ORDERED: Potassium Chloride 20 MEQ TAB PO SCH (14:45)
[2019-01-22] MEDS ORDERED: Magnesium 2 GM/50 ML 2 GM in Premix Bag 1 BAG IVPB SCH (14:45)
--- NOTE | 2019-01-22 15:10 | PRG ---
DATE OF SERVICE: 01/22/2019 SERVICE: Pulmonary Medicine. INTERVAL HISTORY: The patient is actually doing quite well from mentation standpoint. He denies any current shortness of breath or chest discomfort. It is pleasant to find him oriented x4. He denies any fevers or chills or overnight events. We are actually holding off on giving him many doses of Ativan because he has been extremely sleepy recently. His alcohol symptomatology scores have been quite low. PHYSICAL EXAMINATION: VITAL SIGNS: Afebrile with a T-max of 99.8, pulse 78, blood pressure 128/72, respirations 7, and saturation 98% on room air. GENERAL: The patient is awake and alert, in no apparent distress. LUNGS: Wonderful air entry. No prolonged expiratory phase, rhonchi, or wheezing is present. HEART: Normal rate, regular. ABDOMEN: Soft, nontender, and nondistended. Bowel sounds are positive. MUSCULOSKELETAL: No cyanosis or clubbing. No pitting in bilateral lower extremities. NEUROLOGIC: Grossly nonfocal. LABORATORY DATA: Pancytopenia is present. INR 1.1. Basic metabolic profile is otherwise unremarkable. Magnesium 1.7. Potassium 3.7. ASSESSMENT: 1. Delirium tremens, resolved. 2. Alcohol abuse. DISCUSSION AND PLAN: The patient is actually doing really well from mentation standpoint. We will back off on the scheduled Ativan and continue Librium taper. We will watch his ASE scores through time. We will transition him out of the IMCU to the medical unit. Magnesium and potassium to be replaced today. Pulmonary will follow given his multiple setbacks previously. Job ID: [id number]
[2019-01-22] MEDS: Lorazepam 1 MG TAB PO SCH ×2 (15:53→23:11)
[2019-01-23] MEDS: Lorazepam 1 MG TAB PO SCH ×3 (05:51→23:49)
[2019-01-23] MEDS: chlordiazePOXIDE HCl 25 MG CAP PO SCH ×3 (08:09→20:54)
[2019-01-23] MEDS: Nicotine 21 MG PATCH TD SCH (08:09)
[2019-01-23] MEDS: Enoxaparin Sodium 40 MG/0.4 ML SYRINGE SC SCH (08:09)
--- NOTE | 2019-01-23 12:40 | PDOC.HOSPP ---
- Subjective Encounter Date: 01/23/19 Encounter Time: 12:30 Subjective: is awake, responds well to verbal stimuli is eating better - Objective Vital Signs & Weight: Vital Signs (12 hours) Temp Pulse Resp BP BP Pulse Ox 01/23/19 12:00 98.2 F 77 18 122/80 97 01/23/19 08:00 135/97 H 100 01/23/19 07:43 98.2 F 82 18 135/97 H 100 01/23/19 05:54 97.8 F 89 20 127/84 96 Weight Weight 154 lb 12.8 oz Most Recent Monitor Data Heart Rate from ECG 75 NIBP 134/88 NIBP BP-Mean 103 Respiration from ECG 13 SpO2 96 I&O: 01/22/19 01/23/19 01/24/19 06:59 06:59 06:59 Intake Total 2379 1020 Output Total 2070 1050 Balance 309 -30 Result Diagrams: 01/16/19 05:24 01/22/19 05:58 Hospitalist ROS - Medication Medications: Active Medications Generic Name Dose Route Start Last Admin Trade Name Freq PRN Reason Stop Dose Admin Clonidine 0.1 mg 01/20/19 13:23 01/22/19 00:22 Catapres PO 0.1 mg Q4H PRN Administration .SBP > 160 Enoxaparin Sodium 40 mg 01/16/19 09:00 01/23/19 08:09 Lovenox SC 40 mg 0900 KIANNA Administration Lorazepam 2 mg 01/15/19 21:34 01/18/19 15:53 Ativan SLOW IVP 2 mg Q4H PRN Administration Anxiety/Agitation Nicotine 21 mg 01/18/19 09:00 01/23/19 08:09 Nicoderm Patch TD 21 mg DAILY KIANNA Administration Ondansetron HCl 4 mg 01/15/19 21:35 01/17/19 15:13 Zofran Odt PO 4 mg Q6H PRN Administration Nausea/Vomiting Sodium Chloride 10 ml 01/16/19 09:00 01/22/19 20:04 Flush - Normal Saline IVF 10 ml Q12HR KIANNA Administration Sodium Chloride 10 ml 01/16/19 00:29 01/22/19 06:38 Flush - Normal Saline IVF 10 ml PRN PRN Administration Saline Flush - Exam General Appearance: NAD, awake alert Eye: PERRL, anicteric sclera ENT: normocephalic atraumatic, no oropharyngeal lesions Neck: supple, no JVD Heart: RRR, no murmur Respiratory: no wheezes, no rales Gastrointestinal: soft, non-tender, normal bowel sounds Extremities: no cyanosis, no edema Neurological: cranial nerve grossly intact, no focal deficits Psychiatric: normal affect, A&O x 3 Hosp A/P (1) Physical deconditioning Code(s): R53.81 - OTHER MALAISE Status: Acute (2) Alcohol abuse Code(s): F10.10 - ALCOHOL ABUSE, UNCOMPLICATED Status: Acute (3) Alcohol withdrawal delirium, acute, hyperactive Code(s): F10.231 - ALCOHOL DEPENDENCE WITH WITHDRAWAL DELIRIUM Status: Acute (4) Alcohol withdrawal seizure Code(s): F10.239 - ALCOHOL DEPENDENCE WITH WITHDRAWAL, UNSPECIFIED; R56.9 - UNSPECIFIED CONVULSIONS Status: Acute - Plan is hemostable electrolytes are stable PT to ambulate as tolerated on librium bid, ASE protocol dc plan to Half-Way if he ambulates well
--- NOTE | 2019-01-23 16:29 | PRG ---
DATE OF SERVICE: 01/23/2019 SERVICE: Pulmonary Medicine. INTERVAL HISTORY: The patient is doing fine from respiratory standpoint. He is breathing comfortably. He has no chest discomfort. He has had a couple of starts. Like when he falls off to sleep, sometimes he will wake up and have contractions of the entire body. It is a one off thing. That being said, it is uncomfortable sensation for him. Outside of this, he has not had any significant changes to his condition. He remains awake, alert, and oriented. When I came in the room, he was sleeping comfortably. He woke up and was fully conversive without any stimulation. PHYSICAL EXAMINATION: VITAL SIGNS: Afebrile, pulse 77, blood pressure 122/80, respirations 18, and saturation 97% on room air. GENERAL: The patient is awake, alert, and oriented x4. HEENT: Normocephalic and atraumatic. Sclerae white. Conjunctivae pink. Oral mucosa is moist without lesions. LUNGS: Decent air entry. There is no prolonged expiratory phase or wheezing present. HEART: Normal rate, regular. ABDOMEN: Soft, nontender, and nondistended. Bowel sounds are positive. MUSCULOSKELETAL: No cyanosis or clubbing. There is no pitting in the bilateral lower extremities. NEUROLOGIC: Grossly nonfocal. ASSESSMENT: 1. Delirium tremens, resolved. 2. Alcohol abuse. DISCUSSION AND PLAN: The patient is doing fine from mentation standpoint. He is oriented x3. There is no evidence of any seizure activity. He is on benzodiazepine taper. Every time I have seen him for the last couple of days, he has been little excessively sleepy. As such, I think we can drop the dose of Librium to twice daily. Critical Care will continue to follow, intermittently. Job ID: [id number]
[2019-01-24] MEDS: chlordiazePOXIDE HCl 25 MG CAP PO SCH (07:59)
[2019-01-24] MEDS: Lorazepam 1 MG TAB PO SCH (07:59)
[2019-01-24] MEDS: Enoxaparin Sodium 40 MG/0.4 ML SYRINGE SC SCH (07:59)
[2019-01-24] MEDS: Nicotine 21 MG PATCH TD SCH (08:00)
--- NOTE | 2019-01-24 09:34 | PRG ---
DATE OF SERVICE: 01/24/2019 SUBJECTIVE: The patient is doing reasonably well. He is sleeping in bed. OBJECTIVE: VITAL SIGNS: Temperature 98.3, pulse 83, respirations 18, O2 saturation 94%, blood pressure 127/81. HEENT: Unremarkable. NECK: No adenopathy or JVD. LUNGS: Clear. CARDIAC: S1, S2. Regular. ABDOMEN: Soft. EXTREMITIES: No edema. ASSESSMENT: Delirium tremens has resolved. PLAN: I would stop the scheduled Ativan. From my standpoint, he is safe to go back to the correction. I will leave the Librium up to the Primary Team. Job ID: [id number]
[2019-01-24 12:08] VITALS: BP 118/75; TEMP 98.5
--- NOTE | 2019-01-25 08:01 | DIS ---
DATE OF ADMISSION: 01/16/2019 DATE OF DISCHARGE: 01/24/2019 DISCHARGE DISPOSITION: [facility]. PRIMARY DISCHARGE DIAGNOSES: Alcohol abuse with withdrawal and delirium, alcohol withdrawal seizure. PROCEDURES DONE DURING HOSPITALIZATION: H and H are 12 and 35, platelet count is 40, MCV is 105. PT/INR, PTT within normal limits. BUN and creatinine are 6 and 0.6 on the 14th. On arrival; total bilirubin was 2.0, AST 446, ALT 185, alkaline phosphatase 80. DISCHARGE MEDICATIONS: 1. Librium 25 mg twice daily for 1 week, then once daily for 1 week, and to discontinue after that. 2. Thiamine 100 mg p.o. daily. 3. Multivitamin 1 tablet once daily. ALLERGIES: ALLERGIC TO AMOXICILLIN. INPATIENT CONSULT: Dr. Kirby for Pulmonary Critical Care. DISCHARGE PLAN: The patient to follow up with senior care primary care physician in 1 week. BRIEF COURSE DURING HOSPITALIZATION: The patient initially got hospitalized from senior care after he had an episode of seizure. He has history of alcohol abuse and was noted to have alcohol withdrawal seizures. He also had delirium tremens. The patient was initially admitted to ICU for close monitoring for further worsening and respiratory compromise. He has had multiple electrolyte abnormalities, which were all corrected. He is on ASC, alcohol withdrawal protocol along with Librium. He has had slow stabilization of withdrawal symptoms. Prior to discharge, he is ambulating and eating well. He is on tapering Librium. I have spoken to senior care nurse and they are comfortable continuing Librium tapering for another 2 weeks. The patient was counseled with regard to complete alcohol cessation and states that he is currently in senior care and will not have a chance to use that. Please note, I have seen and examined the patient on the day of discharge. He is hemodynamically stable and neurologically stable as well for discharge. No further seizures were noted after initial seizures. Job ID: [id number]
== END 2019-01-24 14:06 | DRG 897 ==
LOC: ERS 16:51 → EEVIPCON 16:51 → CCU 01-16 00:28 → T4-A 01-16 00:36 → IMCU/EMU 01-18 06:39 → CCU 01-18 18:54 → IMCU/EMU 01-21 23:11 → T4-B 01-22 17:21
PROVIDERS: ADMIT Hospitalist; ATTEND Hospitalist
DX: F10.231 Alcohol dependence with withdrawal delirium (principal); E87.1 Hypo-osmolality and hyponatremia; D61.818 Other pancytopenia; G40.909 Epilepsy, unspecified, not intractable, without status epilepticus; F10.20 Alcohol dependence, uncomplicated; E83.42 Hypomagnesemia; E87.6 Hypokalemia; Z79.899 Other long term (current) drug therapy
CPT/HCPCS: 36415; 36416; 80048; 80053; 81003; 81015; 82550; 83735; 84100; 84146; 85025; 85610; 85730; 96361; 96365; 96366; 96375; 96376; J1650; J2060; J3411; J3475; J3480; J3490; J7042; J7050; Q0162; S0028

== ENCOUNTER 2021-03-05 21:19 | Inpatient (IN) | payer BC, OTHER, SELFPAY ==
[2021-03-05] MEDS ORDERED: Lorazepam 2 MG/ML VIAL ONE (21:59)
[2021-03-05 22:18] LABS: Hemoglobin 13.8 g/dL (14.0-18.0); Mean Corpuscular HGB CONC 34.2 g/dL (32.0-36.0); Mean Corpuscular Hemoglobin 33.7 pg (27.0-31.0); Mean Corpuscular Volume 98.6 fL (78.0-98.0); RBC Distribution Width 11.7 % (11.5-14.5); Red Blood Cell (RBC) Count 4.11 mill/uL (4.70-6.10); White Blood Cell (WBC) Count 2.9 thou/uL (4.8-10.8)
[2021-03-05 22:23] LABS: Prothrombin Time 12.8 sec (12.0-14.7)
[2021-03-05 22:24] LABS: PTT 31.1 sec (22.9-36.1)
[2021-03-05 22:28] LABS: #Lymphocytes 0.8 thou/uL (1.20-3.40); #Monocytes 0.3 thou/uL (0.11-0.59); #Neutrophils 1.8 thou/uL (1.40-6.50); %Basophils 1.4 % (0.0-1.0); %Eosinophils 0.7 % (0.0-10.0); %Lymphocytes 27.1 % (21.0-51.0); %Monocytes 8.6 % (0.0-10.0); %Neutrophils 62.2 % (42.0-75.0); Mean Platelet Volume 7.9 fL (7.4-10.4); Platelet Count 83 thou/uL (130-400); Platelet Morphology Comment Appears Decreased
[2021-03-05 22:40] LABS: ALT (SGPT) 50 U/L (8-55); AST (SGOT) 83 U/L (5-34); Albumin 5.2 g/dL (3.5-5.0); Alkaline Phosphatase 41 U/L (40-110); Anion Gap 20 mmol/L (10-20); BUN (Urea Nitrogen) 6 mg/dL (8.9-20.6); Bilirubin, Total 1.1 mg/dL (0.2-1.2); Calc. Creatinine Clearance 0 mL/min (70-130); Calcium 9.7 mg/dL (7.8-10.44); Carbon Dioxide 24 mmol/L (22-29); Chloride 93 mmol/L (98-107); Globulin 3.8 g/dL (2.4-3.5); Glucose 99 mg/dL (70-105); Lipase 32 U/L (8-78); Potassium 3.4 mmol/L (3.5-5.1); Sodium 134 mmol/L (136-145)
[2021-03-05 22:41] LABS: Acetaminophen Less than 6.0 mcg/mL (10.0-30.0); Alcohol 105 mg/dL (Less than 10); Salicylate Less than 8.0 mg/dL (15.0-30.0)
[2021-03-06] MEDS ORDERED: Acetaminophen 325 MG TAB PO PRN (00:44)
[2021-03-06] MEDS: Thiamine HCl 200 MG/2 ML VIAL SLOW IVP SCH (01:00)
[2021-03-06] MEDS ORDERED: Electrolyte Replacement Protocol 1 EACH FS PRN (01:00)
[2021-03-06] MEDS ORDERED: Lorazepam 2 MG/ML VIAL IM PRN (01:00)
[2021-03-06] MEDS ORDERED: Ondansetron ODT 4 MG TAB PO PRN (01:00)
[2021-03-06] MEDS ORDERED: Lorazepam 1 MG TAB ONE ×3 (02:18→07:16)
[2021-03-06] MEDS: Lorazepam 1 MG TAB PO PRN ×3 (02:30→21:22)
[2021-03-06 05:16] LABS: Amphetamine Not Detected (NotDetected); Barbiturates Screen Not Detected (NotDetected); Benzodiazepine Screen Not Detected (NotDetected); Cocaine Metabolite Screen Not Detected (NotDetected); Methadone Not Detected (NotDetected); Methamphetamine Not Detected (NotDetected); Opiate Screen Not Detected (NotDetected); Oxycodone Screen Detected (NotDetected); Phencyclidine (PCP) Not Detected (NotDetected); THC/Cannabinoid Screen Not Detected (NotDetected); Tricyclic Screen Not Detected (NotDetected)
[2021-03-06 05:20] LABS: #Monocytes 0.3 thou/uL (0.11-0.59); #Neutrophils 1.2 thou/uL (1.40-6.50); %Basophils 0.1 % (0.0-1.0); %Eosinophils 1.5 % (0.0-10.0); %Lymphocytes 37.8 % (21.0-51.0); %Monocytes 12.8 % (0.0-10.0); %Neutrophils 47.8 % (42.0-75.0); Mean Corpuscular HGB CONC 34.3 g/dL (32.0-36.0); Mean Corpuscular Hemoglobin 34.1 pg (27.0-31.0); Mean Corpuscular Volume 99.6 fL (78.0-98.0); Mean Platelet Volume 8.4 fL (7.4-10.4); Platelet Count 70 thou/uL (130-400); RBC Distribution Width 11.8 % (11.5-14.5); Red Blood Cell (RBC) Count 3.79 mill/uL (4.70-6.10); White Blood Cell (WBC) Count 2.6 thou/uL (4.8-10.8)
[2021-03-06 05:21] LABS: Anion Gap 17 mmol/L (10-20); BUN (Urea Nitrogen) 7 mg/dL (8.9-20.6); Calc. Creatinine Clearance 0 mL/min (70-130); Calcium 8.9 mg/dL (7.8-10.44); Carbon Dioxide 23 mmol/L (22-29); Chloride 96 mmol/L (98-107); Glucose 145 mg/dL (70-105); Potassium 3.4 mmol/L (3.5-5.1); Sodium 133 mmol/L (136-145)
[2021-03-06] MEDS ORDERED: Potassium Chloride 20 MEQ TAB PO SCH (07:00)
[2021-03-06] MEDS: Sodium Chloride 0.9% 1,000 ML IV SCH ×2 (07:27→19:02)
[2021-03-06] MEDS: Lorazepam 1 MG TAB PO SCH ×3 (07:27→17:53)
[2021-03-06] MEDS ORDERED: Folic Acid 1 MG TAB ONE (08:48)
[2021-03-06] MEDS ORDERED: Multivit, Therapeutic 1 TAB PO SCH (09:00)
[2021-03-06] MEDS ORDERED: Folic Acid 1 MG TAB PO SCH (09:00)
[2021-03-06 12:01] LABS: Magnesium 1.2 mg/dL (1.6-2.6)
[2021-03-06] MEDS ORDERED: Magnesium Sulfate 4 GM in Sodium Chloride 0.9% 250 ML 250 ML IVPB SCH (12:15)
[2021-03-06 16:36] LABS: SARS-CoV-2 NAA Rapid Test Not Detected (NotDetected)
[2021-03-06] MEDS ORDERED: Labetalol HCl 100 MG/20 ML VIAL SLOW IVP PRN (17:35)
[2021-03-06] MEDS: Nicotine 14 MG PATCH TD SCH (17:52)
[2021-03-06] MEDS: traZODone HCl 50 MG TAB PO PRN (21:27)
[2021-03-06] MEDS ORDERED: HYDROcodone/Acetaminophen 5/325 mg Tablet PO PRN (21:34)
[2021-03-06] MEDS: Ondansetron PF 4 MG/2 ML Vial IVP PRN (21:47)
[2021-03-06 23:00] LABS: Anion Gap 16 mmol/L (10-20); BUN (Urea Nitrogen) 8 mg/dL (8.9-20.6); Calc. Creatinine Clearance 140 mL/min (70-130); Calcium 9.3 mg/dL (7.8-10.44); Carbon Dioxide 24 mmol/L (22-29); Chloride 97 mmol/L (98-107); Glucose 104 mg/dL (70-105); Magnesium 2.4 mg/dL (1.6-2.6); Phosphorus 2.6 mg/dL (2.3-4.7); Potassium 3.6 mmol/L (3.5-5.1); Sodium 133 mmol/L (136-145)
[2021-03-07] MEDS: Lorazepam 1 MG TAB PO SCH ×4 (00:04→18:24)
[2021-03-07] MEDS: Thiamine HCl 200 MG/2 ML VIAL SLOW IVP SCH (00:05)
[2021-03-07] MEDS ORDERED: Lorazepam 1 MG TAB PO PRN (01:00)
[2021-03-07] MEDS ORDERED: Ziprasidone 20 MG VIAL IM SCH ×2 (03:30→05:00)
[2021-03-07] MEDS ORDERED: Sterile Water 10 ML VIAL FS PRN (03:30)
[2021-03-07] MEDS ORDERED: Sterile Water 10 ML ONE (03:30)
[2021-03-07] MEDS: Sodium Chloride 0.9% 1,000 ML IV SCH (04:06)
[2021-03-07] MEDS: Lorazepam 2 MG/ML VIAL SLOW IVP PRN ×8 (05:41→21:37)
[2021-03-07] MEDS ORDERED: Haloperidol Lactate 5 MG/ML VIAL ONE (07:40)
[2021-03-07] MEDS ORDERED: Lorazepam 2 MG/ML VIAL ONE ×2 (07:44→08:11)
[2021-03-07] MEDS: Potassium Chloride 20 MEQ in Lactated Ringer's 1,000 ML IV SCH ×2 (08:19→17:46)
[2021-03-07] MEDS: Multivitamins, Adult 10 ML, Folic Acid 1 MG, Thiamine HCl 100 MG in Dextrose 5 %-0.45 %... IV SCH (08:32)
[2021-03-07 08:33] LABS: #Lymphocytes 0.6 thou/uL (1.20-3.40); #Monocytes 0.2 thou/uL (0.11-0.59); #Neutrophils 3.1 thou/uL (1.40-6.50); %Basophils 0.9 % (0.0-1.0); %Eosinophils 0.9 % (0.0-10.0); %Lymphocytes 14.8 % (21.0-51.0); %Monocytes 5.8 % (0.0-10.0); %Neutrophils 77.6 % (42.0-75.0); Hemoglobin 14.6 g/dL (14.0-18.0); Mean Corpuscular HGB CONC 35.2 g/dL (32.0-36.0); Mean Corpuscular Volume 99.4 fL (78.0-98.0); Mean Platelet Volume 9.1 fL (7.4-10.4); Platelet Count 69 thou/uL (130-400); RBC Distribution Width 11.7 % (11.5-14.5); Red Blood Cell (RBC) Count 4.16 mill/uL (4.70-6.10)
[2021-03-07 08:54] LABS: ALT (SGPT) 106 U/L (8-55); AST (SGOT) 290 U/L (5-34); Albumin 4.8 g/dL (3.5-5.0); Alkaline Phosphatase 44 U/L (40-110); Anion Gap 21 mmol/L (10-20); BUN (Urea Nitrogen) 7 mg/dL (8.9-20.6); Bilirubin, Total 2.1 mg/dL (0.2-1.2); Calc. Creatinine Clearance 126 mL/min (70-130); Calcium 9.2 mg/dL (7.8-10.44); Carbon Dioxide 17 mmol/L (22-29); Chloride 102 mmol/L (98-107); Globulin 3.7 g/dL (2.4-3.5); Glucose 154 mg/dL (70-105); Magnesium 2.1 mg/dL (1.6-2.6); Phosphorus 2.5 mg/dL (2.3-4.7); Potassium 3.3 mmol/L (3.5-5.1); Protein, Total 8.5 g/dL (6.0-8.3); Sodium 137 mmol/L (136-145)
[2021-03-07] MEDS ORDERED: FLU VACC QS2021-22(6MOS UP)/PF 60 MCG/0.5 ML SYRINGE IM ONE (09:00)
[2021-03-07] MEDS: FLUoxetine HCl 20 MG CAP PO SCH (09:09)
[2021-03-07] MEDS ORDERED: Potassium Chloride 40 MEQ in Sodium Chloride 0.9% 250 ML 250 ML IVPB SCH (11:00)
[2021-03-07] MEDS: Haloperidol Lactate 5 MG/ML VIAL SLOW IVP PRN ×2 (11:33→21:37)
[2021-03-07] MEDS: Ondansetron PF 4 MG/2 ML Vial IVP PRN ×2 (11:33→18:24)
[2021-03-07] MEDS: Dexmedetomidine 1,000 MCG in Sodium Chloride 0.9% 250 ML 240 ML IVPB SCH (15:01)
[2021-03-07] MEDS ORDERED: hydrALAZINE 10 MG TAB ONE (17:18)
[2021-03-07] MEDS ORDERED: hydrALAZINE 20 MG/ML VIAL ONE (17:19)
[2021-03-07] MEDS: hydrALAZINE 20 MG/ML VIAL SLOW IVP PRN (17:30)
[2021-03-07] MEDS: Nicotine 14 MG PATCH TD SCH (17:32)
[2021-03-07 18:07] LABS: Anion Gap 14 mmol/L (10-20); BUN (Urea Nitrogen) 7 mg/dL (8.9-20.6); Calc. Creatinine Clearance 144 mL/min (70-130); Calcium 9.1 mg/dL (7.8-10.44); Carbon Dioxide 21 mmol/L (22-29); Chloride 107 mmol/L (98-107); Glucose 111 mg/dL (70-105); Potassium 4.1 mmol/L (3.5-5.1); Sodium 138 mmol/L (136-145)
[2021-03-08] MEDS: Lorazepam 1 MG TAB PO SCH (00:55)
[2021-03-08] MEDS: Potassium Chloride 20 MEQ in Lactated Ringer's 1,000 ML IV SCH ×3 (00:59→18:41)
[2021-03-08] MEDS ORDERED: Lorazepam 1 MG TAB PO PRN (01:00)
[2021-03-08] MEDS: Lorazepam 2 MG/ML VIAL SLOW IVP PRN ×12 (01:01→23:23)
[2021-03-08] MEDS: Dexmedetomidine 1,000 MCG in Sodium Chloride 0.9% 250 ML 240 ML IVPB SCH ×2 (01:04→22:02)
[2021-03-08] MEDS: Haloperidol Lactate 5 MG/ML VIAL SLOW IVP PRN ×5 (02:52→19:23)
[2021-03-08] MEDS: hydrALAZINE 20 MG/ML VIAL SLOW IVP PRN ×3 (03:11→18:42)
[2021-03-08 04:20] LABS: #Eosinphils 0.2 thou/uL (0.0-0.7); #Monocytes 0.4 thou/uL (0.11-0.59); #Neutrophils 3.8 thou/uL (1.40-6.50); %Basophils 0.9 % (0.0-1.0); %Eosinophils 3.4 % (0.0-10.0); %Lymphocytes 19.2 % (21.0-51.0); %Monocytes 6.7 % (0.0-10.0); %Neutrophils 69.9 % (42.0-75.0); Hemoglobin 14.2 g/dL (14.0-18.0); Mean Corpuscular HGB CONC 35.6 g/dL (32.0-36.0); Mean Corpuscular Hemoglobin 35.7 pg (27.0-31.0); Mean Platelet Volume 9.2 fL (7.4-10.4); Platelet Count 73 thou/uL (130-400); RBC Distribution Width 11.8 % (11.5-14.5); Red Blood Cell (RBC) Count 3.99 mill/uL (4.70-6.10); White Blood Cell (WBC) Count 5.4 thou/uL (4.8-10.8)
[2021-03-08 04:43] LABS: Anion Gap 14 mmol/L (10-20); BUN (Urea Nitrogen) 6 mg/dL (8.9-20.6); Calc. Creatinine Clearance 152 mL/min (70-130); Calcium 9.1 mg/dL (7.8-10.44); Carbon Dioxide 20 mmol/L (22-29); Chloride 108 mmol/L (98-107); Glucose 100 mg/dL (70-105); Potassium 4.1 mmol/L (3.5-5.1); Sodium 138 mmol/L (136-145)
[2021-03-08] MEDS: Lorazepam 0.5 MG TAB PO SCH ×2 (06:01→19:44)
[2021-03-08] MEDS: Multivitamins, Adult 10 ML, Folic Acid 1 MG, Thiamine HCl 100 MG in Dextrose 5 %-0.45 %... IV SCH ×2 (09:00→13:00)
[2021-03-08] MEDS: FLUoxetine HCl 20 MG CAP PO SCH (09:06)
[2021-03-08] MEDS: Lorazepam 2 MG/ML VIAL SLOW IVP SCH ×2 (13:33→19:24)
[2021-03-08] MEDS: Nicotine 14 MG PATCH TD SCH (19:30)
[2021-03-09] MEDS: Lorazepam 2 MG/ML VIAL SLOW IVP SCH (00:27)
[2021-03-09] MEDS: Potassium Chloride 20 MEQ in Lactated Ringer's 1,000 ML IV SCH ×3 (01:50→20:05)
[2021-03-09 05:08] LABS: #Eosinphils 0.2 thou/uL (0.0-0.7); #Lymphocytes 1.3 thou/uL (1.20-3.40); #Monocytes 0.7 thou/uL (0.11-0.59); #Neutrophils 3.4 thou/uL (1.40-6.50); %Basophils 0.7 % (0.0-1.0); %Eosinophils 2.8 % (0.0-10.0); %Lymphocytes 23.5 % (21.0-51.0); %Monocytes 12.8 % (0.0-10.0); %Neutrophils 60.2 % (42.0-75.0); Hemoglobin 13.8 g/dL (14.0-18.0); Mean Corpuscular HGB CONC 34.2 g/dL (32.0-36.0); Mean Corpuscular Hemoglobin 34.7 pg (27.0-31.0); Mean Platelet Volume 8.6 fL (7.4-10.4); Platelet Count 83 thou/uL (130-400); RBC Distribution Width 11.8 % (11.5-14.5); Red Blood Cell (RBC) Count 3.96 mill/uL (4.70-6.10); White Blood Cell (WBC) Count 5.7 thou/uL (4.8-10.8)
[2021-03-09 05:19] LABS: ALT (SGPT) 85 U/L (8-55); AST (SGOT) 95 U/L (5-34); Albumin 3.9 g/dL (3.5-5.0); Alkaline Phosphatase 42 U/L (40-110); Anion Gap 17 mmol/L (10-20); BUN (Urea Nitrogen) 8 mg/dL (8.9-20.6); Bilirubin, Total 1.7 mg/dL (0.2-1.2); Calc. Creatinine Clearance 150 mL/min (70-130); Calcium 8.7 mg/dL (7.8-10.44); Carbon Dioxide 17 mmol/L (22-29); Chloride 107 mmol/L (98-107); Glucose 103 mg/dL (70-105); Phosphorus 2.5 mg/dL (2.3-4.7); Potassium 4.1 mmol/L (3.5-5.1); Protein, Total 6.9 g/dL (6.0-8.3); Sodium 137 mmol/L (136-145)
[2021-03-09] MEDS ORDERED: cloNIDine 0.1 MG TAB PO PRN (08:53)
[2021-03-09] MEDS ORDERED: Labetalol HCl 100 MG/20 ML VIAL SLOW IVP PRN (08:55)
[2021-03-09] MEDS ORDERED: Thiamine 100 MG TAB PO SCH (09:00)
[2021-03-09] MEDS: Thiamine HCl 200 MG/2 ML VIAL SLOW IVP SCH (09:04)
[2021-03-09] MEDS: FLUoxetine HCl 20 MG CAP PO SCH (09:17)
[2021-03-09] MEDS: hydrALAZINE 20 MG/ML VIAL SLOW IVP PRN (09:17)
[2021-03-09] MEDS: Lorazepam 2 MG/ML VIAL SLOW IVP PRN ×3 (09:17→21:27)
[2021-03-09] MEDS: Folic Acid 1 MG TAB PO SCH (09:25)
[2021-03-09] MEDS: Multivit, Therapeutic 1 TAB PO SCH (09:25)
[2021-03-09] MEDS: pyridOXINE 50 MG (B6) TAB PO SCH (09:26)
[2021-03-09] MEDS ORDERED: Magnesium 2 GM/50 ML 2 GM in Premix Bag 1 BAG IVPB SCH (10:00)
[2021-03-09] MEDS: Haloperidol Lactate 5 MG/ML VIAL SLOW IVP PRN ×2 (17:32→23:01)
[2021-03-09] MEDS: Ondansetron PF 4 MG/2 ML Vial IVP PRN (19:46)
[2021-03-09] MEDS: Nicotine 14 MG PATCH TD SCH (20:06)
[2021-03-10] MEDS: Dexmedetomidine 1,000 MCG in Sodium Chloride 0.9% 250 ML 240 ML IVPB SCH (01:03)
[2021-03-10] MEDS: hydrALAZINE 20 MG/ML VIAL SLOW IVP PRN (01:03)
[2021-03-10] MEDS: Potassium Chloride 20 MEQ in Lactated Ringer's 1,000 ML IV SCH ×2 (03:30→08:43)
[2021-03-10 05:04] LABS: Eosinophils 3 % (0-10); Hemoglobin 13.3 g/dL (14.0-18.0); Lymphocytes 16 % (21-51); MDiff Complete? YES; Mean Corpuscular HGB CONC 35.9 g/dL (32.0-36.0); Mean Corpuscular Hemoglobin 36.1 pg (27.0-31.0); Mean Platelet Volume 7.8 fL (7.4-10.4); Monocytes 15 % (0-10); Neutrophil 63 % (42-75); Platelet Count 114 thou/uL (130-400); Platelet Morphology Comment Appears Decreased; RBC Distribution Width 11.5 % (11.5-14.5); Reactive Lymphocytes 3 % (0-10); White Blood Cell (WBC) Count 4.6 thou/uL (4.8-10.8)
[2021-03-10 05:27] LABS: ALT (SGPT) 63 U/L (8-55); AST (SGOT) 56 U/L (5-34); Albumin 3.7 g/dL (3.5-5.0); Alkaline Phosphatase 40 U/L (40-110); Anion Gap 13 mmol/L (10-20); BUN (Urea Nitrogen) 9 mg/dL (8.9-20.6); Bilirubin, Total 1.2 mg/dL (0.2-1.2); Calc. Creatinine Clearance 150 mL/min (70-130); Calcium 8.7 mg/dL (7.8-10.44); Carbon Dioxide 21 mmol/L (22-29); Chloride 106 mmol/L (98-107); Globulin 2.7 g/dL (2.4-3.5); Glucose 103 mg/dL (70-105); Magnesium 2.1 mg/dL (1.6-2.6); Phosphorus 3.1 mg/dL (2.3-4.7); Protein, Total 6.4 g/dL (6.0-8.3); Sodium 136 mmol/L (136-145)
[2021-03-10] MEDS ORDERED: Fluticasone Propionate Nasal Spray 16 gm Bottle NASAL PRN (06:03)
[2021-03-10] MEDS: Thiamine HCl 200 MG/2 ML VIAL SLOW IVP SCH (08:41)
[2021-03-10] MEDS: Multivit, Therapeutic 1 TAB PO SCH (08:42)
[2021-03-10] MEDS: FLUoxetine HCl 20 MG CAP PO SCH (08:42)
[2021-03-10] MEDS: Folic Acid 1 MG TAB PO SCH (08:42)
[2021-03-10] MEDS: pyridOXINE 50 MG (B6) TAB PO SCH (08:43)
[2021-03-10] MEDS ORDERED: Cefdinir 300 MG CAP PO SCH (12:30)
[2021-03-10] MEDS: Nicotine 14 MG PATCH TD SCH (16:40)
[2021-03-10] MEDS: traZODone HCl 50 MG TAB PO PRN (20:34)
[2021-03-10] MEDS: Cefdinir 300 MG CAP PO SCH (20:34)
[2021-03-11] MEDS: Cefdinir 300 MG CAP PO SCH ×2 (07:47→20:52)
[2021-03-11] MEDS: pyridOXINE 50 MG (B6) TAB PO SCH (07:47)
[2021-03-11] MEDS: FLUoxetine HCl 20 MG CAP PO SCH (07:47)
[2021-03-11] MEDS: Multivit, Therapeutic 1 TAB PO SCH (07:47)
[2021-03-11] MEDS: Thiamine 100 MG TAB PO SCH (07:47)
[2021-03-11] MEDS: Folic Acid 1 MG TAB PO SCH (07:47)
[2021-03-11] MEDS: Ondansetron PF 4 MG/2 ML Vial IVP PRN (07:51)
[2021-03-11] MEDS: Nicotine 14 MG PATCH TD SCH (12:34)
[2021-03-11] MEDS ORDERED: Promethazine HCl 6.25 MG in Sodium Chloride 0.9% 50 ML IVPB PRN (16:29)
[2021-03-11] MEDS: Metoprolol Tartrate 25 MG TAB PO SCH (20:52)
[2021-03-11] MEDS: Pantoprazole 40 MG VIAL IVP SCH (20:52)
[2021-03-12 07:54] LABS: ALT (SGPT) 62 U/L (8-55); AST (SGOT) 51 U/L (5-34); Albumin 4.8 g/dL (3.5-5.0); Alkaline Phosphatase 46 U/L (40-110); Anion Gap 14 mmol/L (10-20); BUN (Urea Nitrogen) 6 mg/dL (8.9-20.6); Bilirubin, Total 1.5 mg/dL (0.2-1.2); Calc. Creatinine Clearance 136 mL/min (70-130); Calcium 10.1 mg/dL (7.8-10.44); Carbon Dioxide 24 mmol/L (22-29); Chloride 91 mmol/L (98-107); Globulin 3.5 g/dL (2.4-3.5); Glucose 107 mg/dL (70-105); Protein, Total 8.3 g/dL (6.0-8.3); Sodium 125 mmol/L (136-145)
[2021-03-12 08:03] LABS: Hemoglobin 14.9 g/dL (14.0-18.0); Mean Corpuscular Hemoglobin 34.2 pg (27.0-31.0); Mean Corpuscular Volume 97.8 fL (78.0-98.0); Mean Platelet Volume 8.3 fL (7.4-10.4); Platelet Count 204 thou/uL (130-400); RBC Distribution Width 11.5 % (11.5-14.5); Red Blood Cell (RBC) Count 4.34 mill/uL (4.70-6.10); White Blood Cell (WBC) Count 5.4 thou/uL (4.8-10.8)
[2021-03-12] MEDS: pyridOXINE 50 MG (B6) TAB PO SCH (08:34)
[2021-03-12] MEDS: Pantoprazole 40 MG VIAL IVP SCH ×2 (08:34→20:08)
[2021-03-12] MEDS: Multivit, Therapeutic 1 TAB PO SCH (08:34)
[2021-03-12] MEDS: FLUoxetine HCl 20 MG CAP PO SCH (08:34)
[2021-03-12] MEDS: Metoprolol Tartrate 25 MG TAB PO SCH (08:34)
[2021-03-12] MEDS: Folic Acid 1 MG TAB PO SCH (08:34)
[2021-03-12] MEDS: Cefdinir 300 MG CAP PO SCH ×2 (08:34→20:07)
[2021-03-12] MEDS: Thiamine 100 MG TAB PO SCH (08:34)
[2021-03-12 11:00] LABS: Anion Gap 17 mmol/L (10-20); BUN (Urea Nitrogen) 6 mg/dL (8.9-20.6); Calc. Creatinine Clearance 146 mL/min (70-130); Carbon Dioxide 18 mmol/L (22-29); Chloride 92 mmol/L (98-107); Glucose 98 mg/dL (70-105); Potassium 4.5 mmol/L (3.5-5.1); Sodium 122 mmol/L (136-145)
[2021-03-12] MEDS: Nicotine 14 MG PATCH TD SCH (11:35)
[2021-03-12] MEDS ORDERED: Sodium Chloride 0.9% 1,000 ML IV SCH (13:30)
[2021-03-12 18:19] LABS: Anion Gap 12 mmol/L (10-20); BUN (Urea Nitrogen) 6 mg/dL (8.9-20.6); Calc. Creatinine Clearance 148 mL/min (70-130); Calcium 9.3 mg/dL (7.8-10.44); Carbon Dioxide 21 mmol/L (22-29); Chloride 92 mmol/L (98-107); Glucose 153 mg/dL (70-105); Potassium 3.6 mmol/L (3.5-5.1); Sodium 121 mmol/L (136-145)
[2021-03-12] MEDS: Sodium Chloride 0.9% 1,000 ML IV SCH (20:06)
[2021-03-12] MEDS: Metoprolol Tartrate 50 MG TAB PO SCH (20:07)
[2021-03-13 06:46] LABS: Anion Gap 16 mmol/L (10-20); BUN (Urea Nitrogen) 7 mg/dL (8.9-20.6); Calc. Creatinine Clearance 138 mL/min (70-130); Calcium 9.4 mg/dL (7.8-10.44); Carbon Dioxide 18 mmol/L (22-29); Chloride 96 mmol/L (98-107); Glucose 99 mg/dL (70-105); Potassium 4.1 mmol/L (3.5-5.1); Sodium 126 mmol/L (136-145)
[2021-03-13] MEDS: Metoprolol Tartrate 50 MG TAB PO SCH ×2 (08:00→20:38)
[2021-03-13] MEDS: Thiamine 100 MG TAB PO SCH (08:00)
[2021-03-13] MEDS: pyridOXINE 50 MG (B6) TAB PO SCH (08:01)
[2021-03-13] MEDS: Pantoprazole 40 MG VIAL IVP SCH ×2 (08:01→20:43)
[2021-03-13] MEDS: Cefdinir 300 MG CAP PO SCH ×2 (08:01→20:38)
[2021-03-13] MEDS: Folic Acid 1 MG TAB PO SCH (08:01)
[2021-03-13] MEDS: Multivit, Therapeutic 1 TAB PO SCH (08:01)
[2021-03-13] MEDS: FLUoxetine HCl 20 MG CAP PO SCH (08:01)
[2021-03-13] MEDS: Nicotine 14 MG PATCH TD SCH (11:39)
[2021-03-13 14:27] LABS: Anion Gap 13 mmol/L (10-20); BUN (Urea Nitrogen) 7 mg/dL (8.9-20.6); Calc. Creatinine Clearance 133 mL/min (70-130); Calcium 9.7 mg/dL (7.8-10.44); Carbon Dioxide 22 mmol/L (22-29); Chloride 97 mmol/L (98-107); Glucose 113 mg/dL (70-105); Potassium 4.3 mmol/L (3.5-5.1); Sodium 128 mmol/L (136-145)
[2021-03-13] MEDS: Sodium Chloride 0.9% 1,000 ML IV SCH (15:07)
[2021-03-13] MEDS: traZODone HCl 50 MG TAB PO PRN (20:38)
[2021-03-14] MEDS: Lorazepam 0.5 MG TAB PO PRN ×5 (04:11→23:54)
[2021-03-14] MEDS: pyridOXINE 50 MG (B6) TAB PO SCH (07:46)
[2021-03-14] MEDS: Cefdinir 300 MG CAP PO SCH ×2 (07:46→20:13)
[2021-03-14] MEDS: Multivit, Therapeutic 1 TAB PO SCH (07:46)
[2021-03-14] MEDS: Folic Acid 1 MG TAB PO SCH (07:46)
[2021-03-14] MEDS: Pantoprazole 40 MG VIAL IVP SCH (07:47)
[2021-03-14] MEDS: Metoprolol Tartrate 50 MG TAB PO SCH ×2 (07:47→20:13)
[2021-03-14] MEDS: FLUoxetine HCl 20 MG CAP PO SCH (07:47)
[2021-03-14] MEDS: Thiamine 100 MG TAB PO SCH (07:47)
[2021-03-14] MEDS: Nicotine 14 MG PATCH TD SCH (11:16)
[2021-03-14 12:04] LABS: SARS-CoV-2 PCR by NAA Not Detected (NotDetected)
[2021-03-14 12:30] LABS: Anion Gap 13 mmol/L (10-20); BUN (Urea Nitrogen) 9 mg/dL (8.9-20.6); Calc. Creatinine Clearance 142 mL/min (70-130); Calcium 8.9 mg/dL (7.8-10.44); Carbon Dioxide 23 mmol/L (22-29); Chloride 99 mmol/L (98-107); Glucose 102 mg/dL (70-105); Potassium 3.9 mmol/L (3.5-5.1); Sodium 131 mmol/L (136-145)
[2021-03-14 13:08] LABS: Hemoglobin 13.2 g/dL (14.0-18.0); Lymphocytes 25 % (21-51); MDiff Complete? YES; Mean Corpuscular HGB CONC 35.1 g/dL (32.0-36.0); Mean Corpuscular Volume 99.6 fL (78.0-98.0); Mean Platelet Volume 7.8 fL (7.4-10.4); Monocytes 27 % (0-10); Neutrophil 44 % (42-75); Platelet Count 253 thou/uL (130-400); Platelet Morphology Comment Appears Adequate; RBC Distribution Width 11.4 % (11.5-14.5); RBC Morphology Normal; Reactive Lymphocytes 3 % (0-10); Red Blood Cell (RBC) Count 3.78 mill/uL (4.70-6.10); White Blood Cell (WBC) Count 4.7 thou/uL (4.8-10.8)
[2021-03-14] MEDS: traZODone HCl 50 MG TAB PO PRN (20:13)
[2021-03-15] MEDS: Lorazepam 0.5 MG TAB PO PRN ×3 (03:04→16:41)
[2021-03-15 05:55] LABS: Hemoglobin 12.7 g/dL (14.0-18.0); Mean Corpuscular HGB CONC 34.9 g/dL (32.0-36.0); Mean Corpuscular Hemoglobin 34.7 pg (27.0-31.0); Mean Corpuscular Volume 99.5 fL (78.0-98.0); Mean Platelet Volume 7.8 fL (7.4-10.4); Platelet Count 287 thou/uL (130-400); RBC Distribution Width 11.5 % (11.5-14.5); Red Blood Cell (RBC) Count 3.67 mill/uL (4.70-6.10); White Blood Cell (WBC) Count 5.3 thou/uL (4.8-10.8)
[2021-03-15 06:11] LABS: Anion Gap 14 mmol/L (10-20); BUN (Urea Nitrogen) 11 mg/dL (8.9-20.6); Carbon Dioxide 22 mmol/L (22-29); Chloride 99 mmol/L (98-107); Potassium 4.1 mmol/L (3.5-5.1); Sodium 131 mmol/L (136-145)
[2021-03-15 06:12] LABS: Calc. Creatinine Clearance 128 mL/min (70-130); Calcium 9.9 mg/dL (7.8-10.44); Glucose 107 mg/dL (70-105)
[2021-03-15 06:14] LABS: MDiff Complete? YES
[2021-03-15 06:15] LABS: Band 3 % (5-11); Eosinophils 1 % (0-10); Lymphocytes 36 % (21-51); Monocytes 17 % (0-10); Neutrophil 43 % (42-75)
[2021-03-15] MEDS: Folic Acid 1 MG TAB PO SCH (08:48)
[2021-03-15] MEDS: FLUoxetine HCl 20 MG CAP PO SCH (08:48)
[2021-03-15] MEDS: Metoprolol Tartrate 50 MG TAB PO SCH ×2 (08:48→22:11)
[2021-03-15] MEDS: Multivit, Therapeutic 1 TAB PO SCH (08:48)
[2021-03-15] MEDS: pyridOXINE 50 MG (B6) TAB PO SCH (08:48)
[2021-03-15] MEDS: Thiamine 100 MG TAB PO SCH (08:48)
[2021-03-15] MEDS ORDERED: OLANZapine 10 MG VIAL IM SCH (12:30)
[2021-03-15] MEDS: Nicotine 14 MG PATCH TD SCH (13:57)
[2021-03-15] MEDS ORDERED: Sterile Water 10 ML ONE (13:58)
[2021-03-15] MEDS ORDERED: Sterile Water 10 ML VIAL FS PRN (14:39)
[2021-03-15] MEDS ORDERED: Ziprasidone 20 MG VIAL IM SCH (14:39)
[2021-03-15] MEDS ORDERED: Haloperidol Lactate 5 MG/ML VIAL IM SCH (19:15)
[2021-03-16 03:52] LABS: Anion Gap 11 mmol/L (10-20); BUN (Urea Nitrogen) 8 mg/dL (8.9-20.6); Calc. Creatinine Clearance 140 mL/min (70-130); Calcium 9.5 mg/dL (7.8-10.44); Carbon Dioxide 26 mmol/L (22-29); Chloride 102 mmol/L (98-107); Glucose 100 mg/dL (70-105); Potassium 3.6 mmol/L (3.5-5.1); Sodium 135 mmol/L (136-145)
[2021-03-16] MEDS: pyridOXINE 50 MG (B6) TAB PO SCH (09:44)
[2021-03-16] MEDS: FLUoxetine HCl 20 MG CAP PO SCH (09:44)
[2021-03-16] MEDS: Thiamine 100 MG TAB PO SCH (09:44)
[2021-03-16] MEDS: Metoprolol Tartrate 50 MG TAB PO SCH ×2 (09:44→20:57)
[2021-03-16] MEDS: Multivit, Therapeutic 1 TAB PO SCH (09:44)
[2021-03-16] MEDS: Folic Acid 1 MG TAB PO SCH (09:44)
[2021-03-16] MEDS: Nicotine 14 MG PATCH TD SCH (11:53)
[2021-03-16] MEDS: traZODone HCl 50 MG TAB PO PRN (23:56)
[2021-03-17 08:28] VITALS: BP 141/89; TEMP 99.1
[2021-03-17] MEDS: pyridOXINE 50 MG (B6) TAB PO SCH (09:37)
[2021-03-17] MEDS: Thiamine 100 MG TAB PO SCH (09:37)
[2021-03-17] MEDS: Multivit, Therapeutic 1 TAB PO SCH (09:37)
[2021-03-17] MEDS: FLUoxetine HCl 20 MG CAP PO SCH (09:37)
[2021-03-17] MEDS: Folic Acid 1 MG TAB PO SCH (09:37)
[2021-03-17] MEDS: Metoprolol Tartrate 50 MG TAB PO SCH (09:37)
== END 2021-03-17 12:00 | disposition home or self-care (01) | DRG 896 ==
LOC: ERS 21:19 → ERHOLD 03-06 → 2SE 03-06 10:53 → CCU 03-07 07:15 → T4-A 03-10 11:13 → IMCU/EMU 03-15 19:55 → T4-B 03-16 15:46
PROVIDERS: ADMIT Student in an Organized Health Care Education/Training Program; ATTEND Internal Medicine
DX: F10.221 Alcohol dependence with intoxication delirium (principal); G92.8 Other toxic encephalopathy; D61.818 Other pancytopenia; E87.2 Acidosis; E87.1 Hypo-osmolality and hyponatremia; F10.231 Alcohol dependence with withdrawal delirium; I10 Essential (primary) hypertension; I16.0 Hypertensive urgency; Z20.822 Contact with and (suspected) exposure to COVID-19; Y90.5 Blood alcohol level of 100-119 mg/100 ml; E87.6 Hypokalemia; E83.42 Hypomagnesemia; D64.9 Anemia, unspecified; J02.9 Acute pharyngitis, unspecified; Z88.1 Allergy status to other antibiotic agents; Z79.899 Other long term (current) drug therapy; Z82.49 Family history of ischemic heart disease and other diseases of the circulatory system; Z78.1 Physical restraint status
CPT/HCPCS: 36415; 36416; 80048; 80053; 80306; 80307; 83690; 83735; 84100; 85025; 85027; 85610; 85730; 87081; 87430; 93005; 96374; C9113; J0360; J1630; J2060; J2358; J2405; J3411; J3475; J3480; J3486; J3490; J7042; J7050; J7120; U0002; U0003; U0005